=== PATIENT | female | born 1970 | race Caucasian/White ===

== ENCOUNTER → 2016-10-31 | Outpatient (REF) | payer OTHER ==
[~2016-10-31] MED LIST: ALLE180T33 PO; DOCU10CA PO; DRIS50002 PO; EPIP0.3I2 IM; FERR325T3 PO; MAXA5TAB11 PO; MOTR200T44 PO; ULTR50TA PO; VITA50TA43 PO; VITAMIN B 12 PO; XOPEAER INH; ZOFR20TA PO
[2016-10-31 19:49] LABS: MEAN CORPUSCULAR HEMOGLOBIN 29.3 pg (27.0-33.0); MEAN CORPUSCULAR HGB CONC 33.3 g/dl (32.0-36.5); RED CELL DISTRIBUTION WIDTH 13.3 % (11.5-14.5); WHITE BLOOD COUNT 5.7 K/mm3 (4.0-10.0)
[2016-10-31 20:02] LABS: FOLATE 17.2 NG/ML; VITAMIN B12 LEVEL 512 PG/ML
[2016-10-31 20:03] LABS: ALBUMIN/GLOBULIN RATIO 1.21 (1.00-1.93); ALKALINE PHOSPHATASE 85 U/L (45-117); ALT/SGPT 43 U/L (12-78); ANION GAP 8 MEQ/L (8-16); AST/SGOT 21 U/L (15-37); BILIRUBIN,TOTAL 0.3 MG/DL (0.2-1.0); BLOOD UREA NITROGEN 13 MG/DL (7-18); CALCIUM LEVEL 8.6 MG/DL (8.5-10.1); CARBON DIOXIDE LEVEL 29 MEQ/L (21-32); CHLORIDE LEVEL 100 MEQ/L (98-107); CREATININE FOR GFR 0.79 MG/DL (0.55-1.02); FREE T4 1.03 NG/DL (0.76-1.46); GLOMERULAR FILTRATION RATE > 60.0 (>58); GLUCOSE, FASTING 88 MG/DL (70-105); MAGNESIUM LEVEL 2.1 MG/DL (1.8-2.4); POTASSIUM SERUM 3.9 MEQ/L (3.5-5.1); SODIUM LEVEL 137 MEQ/L (136-145); TOTAL PROTEIN 7.3 GM/DL (6.4-8.2)
== END ==
LOC: M SFHCADAM 15:15
PROVIDERS: ATTEND Physician Assistant
DX: D50.9 Iron deficiency anemia, unspecified (principal); R60.9 Edema, unspecified; G43.009 Migraine without aura, not intractable, without status migrainosus; E55.9 Vitamin D deficiency, unspecified

== ENCOUNTER → 2017-04-22 | Outpatient (REF) | payer OTHER ==
[~2017-04-22] MED LIST changes: +LEVAINH INH; -ULTR50TA PO; +ULTR50TA8 PO; -XOPEAER INH
== END ==
LOC: M LAB REF 13:22
PROVIDERS: ATTEND Physician Assistant Medical
DX: J02.9 Acute pharyngitis, unspecified (principal)

== ENCOUNTER → 2017-06-18 | Outpatient (CLI) | payer OTHER | LOC: M ADAMS 14:39 | DX: M79.671 Pain in right foot (principal) ==

== ENCOUNTER → 2017-12-04 | Outpatient (CLI) | payer OTHER ==
[~2017-12-04] MED LIST changes: -ALLE180T33 PO; -DOCU10CA PO; -DRIS50002 PO; -EPIP0.3I2 IM; -FERR325T3 PO; -LEVAINH INH; -MAXA5TAB11 PO; -MOTR200T44 PO; +PROHANCE 279.3MG/ML 15ML VIAL (A9576) As Ordered; +PROHANCE 279.3MG/ML 5ML VIAL (A9576) As Ordered; -ULTR50TA8 PO; -VITA50TA43 PO; -VITAMIN B 12 PO; -ZOFR20TA PO
== END ==
LOC: M RAD 08:40
DX: N63.11 Unspecified lump in the right breast, upper outer quadrant (principal); N60.11 Diffuse cystic mastopathy of right breast
CPT/HCPCS: A9576

== ENCOUNTER → 2018-09-01 | Outpatient (REF) | payer OTHER ==
[~2018-09-01] MED LIST changes: +ALLE180T33 PO; +DOCU10CA PO; +DRIS50003 PO; +EPIP0.3I2 IM; +FERR325T3 PO; +LEVAINH INH; +MAXA5TAB11 PO; +MOTR200T44 PO; -PROHANCE 279.3MG/ML 15ML VIAL (A9576) As Ordered; -PROHANCE 279.3MG/ML 5ML VIAL (A9576) As Ordered; +ULTR50TA8 PO; +VITA50TA43 PO; +VITAMIN B 12 PO; +ZOFR4TAB16 PO
[2018-09-01 19:59] LABS: ALBUMIN 3.6 GM/DL (3.2-5.2); ALT/SGPT 33 U/L (12-78); BILIRUBIN,TOTAL 0.4 MG/DL (0.2-1.0); BLOOD UREA NITROGEN 13 MG/DL (7-18); CALCIUM LEVEL 8.8 MG/DL (8.5-10.1); CARBON DIOXIDE LEVEL 26 MEQ/L (21-32); CHLORIDE LEVEL 105 MEQ/L (98-107); CREATININE FOR GFR 0.66 MG/DL (0.55-1.30); GLOMERULAR FILTRATION RATE > 60.0 (>58); GLUCOSE, FASTING 85 MG/DL (70-100); POTASSIUM SERUM 4.1 MEQ/L (3.5-5.1); SODIUM LEVEL 138 MEQ/L (136-145); TOTAL PROTEIN 6.7 GM/DL (6.4-8.2)
[2018-09-01 20:37] LABS: BASO % 0.4 % (0.0-1.0); EOS # 0.1 10^3/uL (0.0-0.50); HEMATOCRIT 43.2 % (36.0-47.0); LYMPH # 2.5 10^3/uL (1.5-4.5); LYMPH % 34.5 % (24.0-44.0); MEAN CORPUSCULAR HEMOGLOBIN 28.5 pg (27.0-33.0); MEAN CORPUSCULAR HGB CONC 32.4 g/dl (32.0-36.5); MONO # 0.7 10^3/uL (0.0-0.8); MONO % 9.3 % (0.0-5.0); NEUTROPHILS # 3.9 10^3/uL (1.8-7.7); NEUTROPHILS % 54.5 % (36.0-66.0); PLATELET COUNT, AUTOMATED 228 10^3/uL (150-450); RED BLOOD COUNT 4.91 10^6/uL (4.00-5.40); WHITE BLOOD COUNT 7.2 10^3/uL (4.0-10.0)
== END ==
LOC: M SFHCADAM 11:31
PROVIDERS: ATTEND Physician Assistant
DX: L40.9 Psoriasis, unspecified (principal); R60.9 Edema, unspecified

== ENCOUNTER → 2018-09-02 | Outpatient (REF) | payer OTHER ==
[2018-09-02 19:13] LABS: COLLAGEN EPINEPHRINE 125 SECONDS (74-162)
== END ==
LOC: M LABDRWAD 18:24
PROVIDERS: ATTEND Ophthalmology
DX: H11.32 Conjunctival hemorrhage, left eye (principal)

== ENCOUNTER → 2019-02-22 | Outpatient (CLI) | payer OTHER ==
--- NOTE | 2019-02-22 19:20 | REP ---
SI joint series: Four views. History: Evaluate for arthritis. Findings: The sacroiliac joints show no evidence of ankylosis or erosive change. Impression: Negative radiographs of the SI joints. Electronically Signed by Ahsan Handy MD 02/22/2019 07:37 P
--- NOTE | 2019-02-22 19:20 | REP ---
Bilateral wrist series: Four views. History: Evaluate for arthritis. Findings: AP and lateral views of each wrist demonstrate overall normal mineralization. Joint spaces are preserved. No erosive changes seen. Impression: Negative two-view bilateral wrist series. Electronically Signed by Ahsan Handy MD 02/22/2019 07:37 P
--- NOTE | 2019-02-22 19:26 | REP ---
Bilateral hand series: Four views. History: Evaluate for arthritis. Findings: AP and lateral views of each hand are presented. These demonstrate overall normal mineralization. Bones, joints and soft tissues are unremarkable. There is minimal spurring at the dorsal aspect of the DIP joints of the index and long finger of the right hand. No erosive changes seen. Impression: Minimal DIP joint spurring index and long finger right hand. Electronically Signed by Ahsan Handy MD 02/22/2019 07:38 P
[2019-02-22 19:29] LABS: C REACTIVE PROTEIN QUANTITATIV 1.46 MG/DL (0.00-0.30); RHEUMATOID FACTOR QUANT < 10.0 IU/ML (<15.0)
== END ==
LOC: M ADAMS 16:46
PROVIDERS: ATTEND Internal Medicine Rheumatology
DX: M19.90 Unspecified osteoarthritis, unspecified site (principal); M77.9 Enthesopathy, unspecified

== ENCOUNTER → 2019-02-26 | Outpatient (REF) | payer OTHER | LOC: M SFHCADAM 16:05 | PROVIDERS: ATTEND Physician Assistant | DX: K90.41 Non-celiac gluten sensitivity (principal) ==

== ENCOUNTER → 2020-05-22 | Outpatient (CLI) | payer OTHER ==
--- NOTE | 2020-05-30 12:05 | REP ---
INDICATION: R92.8 RT BREAST ABNORMALITY ON MAMMOGRAM. Family history breast cancer in mother at age 67. COMPARISON: Mammogram 08/04/2018 and 09/26/2016. Ultrasound right breast 02/18/2019. MRI breasts 02/18/2019. Current report is delayed awaiting these prior comparison studies. TECHNIQUE: MLO and CC views of bilateral breasts performed with tomosynthesis. FINDINGS: Moderate heterogeneous fibroglandular tissue is again identified bilaterally. A biopsy clip is seen in the upper outer quadrant of the right breast. At that location there is a smoothly marginated nodule which has remained stable. The prior biopsy was benign. A few of the nodules seen on the prior mammogram have decreased in size consistent with resolving cysts. There are few other small nodular opacities in the right breast which are stable. There is a subcentimeter nodular density in the lateral left breast which is stable. No new mass or architectural distortion is seen. There are no suspicious clusters of microcalcifications. The Volpara volumetric breast density pattern is A. IMPRESSION: BIRADS/ACR category 2, benign. A few nodules previously noted in the right breast have decreased in size consistent with cysts. Other small nodular densities bilaterally are stable. No new mass or clustered microcalcifications. This patient's Tyrer-Cuzick lifetime breast cancer risk assessment score is 25.5%. This mammogram was interpreted with the aid of an FDA-approved computer-aided detection system. The patient states she had a clinical breast exam in over 1 year ago. The patient letter being requested is M1. RECOMMENDATION: Repeat screening mammography recommended 1 year (for women over 40). Given the patient's lifetime risk of breast cancer of 25.5%, supplemental screening MRI of the breasts is recommended. <Electronically signed by Adolfo Nguyễn > 05/30/20 [id number]
== END ==
LOC: M WHC 13:50
PROVIDERS: ATTEND Physician Assistant
DX: R92.8 Other abnormal and inconclusive findings on diagnostic imaging of breast (principal); Z80.3 Family history of malignant neoplasm of breast; Z97.8 Presence of other specified devices; N63.11 Unspecified lump in the right breast, upper outer quadrant
CPT/HCPCS: 77066; G0279

== ENCOUNTER → 2020-06-01 | Outpatient (CLI) | payer OTHER | LOC: M PLALAB 10:23 | PROVIDERS: ATTEND Surgery | DX: Z15.01 Genetic susceptibility to malignant neoplasm of breast (principal); Z80.3 Family history of malignant neoplasm of breast ==

== ENCOUNTER 2020-06-08 10:25 | Emergency (ER) | payer OTHER ==
[~2020-06-08] VITALS: Ht 172.7 cm; Wt 120.9 kg
--- OUTSIDE RECORDS SUMMARY | 2020-06-08 10:45 | CCD ---
Author Author [facility] Organization 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 20 Active 549227251 Problem Vitamin D deficiency E55.9 Active 71177175 Problem Abnormality of right breast on screening mammogram R92.8 Active 243348308 Problem Gastroesophageal reflux disease without esophagitis K21.9 Active 750262894 Problem Migraine without aura and without status migrain osus, not intractable G43.009 Active 343627369 Problem Abnormal mammogram of both breasts R92.8 Activ e 386113296 Problem Arthritis M19.90 Active 4050807 Problem Recurrent sinusitis J32.9 Active 763146571 Problem Melanocytic nevi of left lower limb, including hip D22.72 Active 574463923 Problem Gluten intolerance K90.41 Active 233638889 Problem Psoriasis L40.9 Active 7888966 Problem Migraines G43.909 Active 23260365 Problem Other chronic pain G89.29 Active 50440859 Problem Iron deficiency anemia, unspecified D50.9 Acti ve 32029859 Problem Chronic lumbosacral pain M54.5 Active 6170381 02 Problem Mitral valve prolapse I34.1 Active 900599311 Problem Melanocytic nevi of right lower limb, including hip D22.71 Active 116753305 Problem Melanocytic nevi of left upper limb, including shoulder D22.62 Active 147783680 Problem Melanocytic nevi of right upper limb, including shoulder D22.61 Active 593163856 Problem Melanocytic nevi of trunk D22.5 Active 619258 002 ALLERGIES Allergen (clinical drug ingredient) Drug/Non Drug Allergy do cumented on EMR Reaction Allergy Type Onset Date Status Sulfa (for allergy use only) Hives Drug Allergy Active Penicillin (For Allergies Use Only) Nausea/Vomiting Drug A llergy Active bees Anaphylaxis Non Drug Allergy Active chlorthalidone Chlorthalidone([facility] Code:[address]-80) mood swings Drug Allergy Active Codeine Phosphate([facility] Code:[address]-32) Anaphylaxis Drug Allergy Active meloxicam Meloxicam([facility] Code:[address]-23) edema Drug Allergy Active topiramate Topamax([facility] Code:[address]-89) groggy Drug Allergy Active ENCOUNTERS from 1971 to 2020-04-03 Encounter Location Date Provider Diagnosis [facility] [address] [place] [address] Mar, Reg mary Delong IMMUNIZATIONS Vaccine Route Administration Date Status Influenza (18 yrs & older) Flublok IM Intramuscular Feb 26, 2019 Administered TDAP 0.5mL (Boostrix) IM Intramuscular Feb 26, 2019 Administe red SOCIAL HISTORY Tobacco Use: Social History Observation Description Date Details (start date - stop date) Sex Assigned At : Social History Observation Description Sex Assigned At Unknown Education: Question Answer Notes Level of Education: College Audit Question Answer Notes Total Score: 1 Interpretation: Alcohol Education Sexual Hx: Question Answer Notes Had sex in the last 12 months (vaginal, oral, or anal)? Yes LMP: hyster Have you ever had an STD? No with Men only Use protection? No Drug and Alcohol Question Answer Notes Total Score: 0 Interpretation: No problems reported Alcohol Screening: Question Answer Notes Did you have a drink containing alcohol in the past year? Ye s Points 1 Interpretation Negative How often did you have six or more drinks on one occas ion in the past year? Never (0 points) How many drinks did you have on a typica l day when you were drinking in the past year? 1 or 2 (0 points) How often did you have a drink containing alcohol in t he past year? Monthly or less (1 point) BMI Care Goal Follow-Up Question Answer Notes Above Normal BMI Follow-Up Prescribed activity/exercise educ ation Tobacco Use: Question Answer Notes Are you a: never smoker REASON FOR REFERRAL No Information VITAL SIGNS No information MEDICATIONS Medication SIG (Take, Route, Frequency, Duration) Start Date En d Date Status Vitamin A 8000 UNIT 1 capsule Orally Once a day for 30 day(s) Not-Taking Vitamin B-12 1000 MCG 2 tablet Orally Once a day Active Dovonex 0.005 % 1 application to affected ar ea Externally to both elbow rashes Twice a day prior to application of ointment May, Active Vitamin D-3 125 MCG (5000 UT) as directed Orally Active Magnesium 250 MG 1 tab Orally Daily Oct, Not-T aking Betamethasone Dipropionate Aug 0.05 % 1 application to affected area Externally BID to areas on body with rash after cream Jan, Active EpiPen 2-Mundo 0.3 MG/0.3ML as directed Injection as directed for 2 days September, Active Lasix 20 MG 1 tablet Orally as needed Jan, No t-Taking Fish Oil + D3 5998-2256 MG-UNIT 1 capsule Orally Once a day for 30 day(s) Not-Taking Fluocinonide 0.05 % 1 application to affected ar ea Externally Twice daily to scalp areas with rash for 30 Active Xopenex HFA 45 MCG/ACT 2 puffs as needed Inhalation every 6 hrs as needed for shortness of breath for 30 days Not-Taki ng PROCEDURES No Information RESULTS No Results REASON FOR VISIT [facility] referral MEDICAL (GENERAL) HISTORY Type Description Date Medical History Asthma Medical History Allergic Rhinitis Medical History PCOS Medical History hx Endometriosis (none seen 12/30 hyster) & infertility Medical History hx Uterine fibroids/menorrhagia/irreg cy cles/dysmenorrhea Medical History Migraines with vision loss Medical History fam hx breast cancer (mother, MGF) Medical History fam hx colon cancer (PGM, MGM) Medical History s/p partial hysterectomy (12/30), ovaries intact Medical History fibrocystic breast disease Medical History chronic constipation Medical History H/O B12 deficiency in past. Medical History Peripheral Edema Medical History Echo - 12/2015 - Normal LV si ze and thickness. Ef 60 - 65%, mild MR - no obvious significant pathology but Technically difficult Study Medical History mitral valve prolapse - diag nosed in [place] by echo (records not available) Surgical History partial hysterectomy, still has ovaries 01/10/14 Surgical History myomectomy 07/22/03 Surgical History C section 02/24/03 Surgical History tonsillectomy child Surgical History knee surgery, left Surgical History exploratory laps Surgical History EMB-benign 12/23/13 Surgical History Colonoscopy - Hemorrhoids Dr. Hirsch 2014 Hospitalization History surgery Goals Section No Information Health Concerns No Information MEDICAL EQUIPMENT No Information MENTAL STATUS No Information FUNCTIONAL STATUS No Information ASSESSMENTS No Information PLAN OF TREATMENT Medication Medication Name Sig Start Date Stop Date Fluocinonide 0.05 % 1 application to affected ar ea Externally Twice daily to scalp areas with rash for 30 Insurance Providers Payer Name Payer Address Payer Phone Insured Name Patient Relati onship to Insured Coverage Start Date Coverage End Date [facility] [address] [address] [facility] [phone] YARELI NEIL
--- OUTSIDE RECORDS SUMMARY | 2020-06-08 10:45 | CCD ---
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 20 Active 135379188 Problem Vitamin D deficiency E55.9 Active 24125155 Problem Abnormality of right breast on screening mammogram R92.8 Active 605718838 Problem Gastroesophageal reflux disease without esophagitis K21.9 Active 211231788 Problem Migraine without aura and without status migrain osus, not intractable G43.009 Active 853159391 Problem Abnormal mammogram of both breasts R92.8 Activ e 244076303 Problem Arthritis M19.90 Active 7587509 Problem Recurrent sinusitis J32.9 Active 815479996 Problem Melanocytic nevi of left lower limb, including hip D22.72 Active 692435500 Problem Gluten intolerance K90.41 Active 194506471 Problem Psoriasis L40.9 Active 6802449 Problem Migraines G43.909 Active 51142716 Problem Other chronic pain G89.29 Active 35586410 Problem Iron deficiency anemia, unspecified D50.9 Acti ve 23788172 Problem Chronic lumbosacral pain M54.5 Active 6865745 02 Problem Mitral valve prolapse I34.1 Active 074963828 Problem Melanocytic nevi of right lower limb, including hip D22.71 Active 979646832 Problem Melanocytic nevi of left upper limb, including shoulder D22.62 Active 738540384 Problem Melanocytic nevi of right upper limb, including shoulder D22.61 Active 973581691 Problem Melanocytic nevi of trunk D22.5 Active 274815 002 ALLERGIES Allergen (clinical drug ingredient) Drug/Non Drug Allergy do cumented on EMR Reaction Allergy Type Onset Date Status Sulfa (for allergy use only) Hives Drug Allergy Active Penicillin (For Allergies Use Only) Nausea/Vomiting Drug A llergy Active bees Anaphylaxis Non Drug Allergy Active chlorthalidone Chlorthalidone([facility] Code:[address]-21) mood swings Drug Allergy Active Codeine Phosphate([facility] Code:[address]-32) Anaphylaxis Drug Allergy Active meloxicam Meloxicam([facility] Code:[address]-13) edema Drug Allergy Active topiramate Topamax([facility] Code:[address]-63) groggy Drug Allergy Active ENCOUNTERS from 1971 to 2020-04-11 Encounter Location Date Provider Diagnosis [facility] [address] [place] [address] Mar, Reg mary Delong IMMUNIZATIONS Vaccine Route [...] MEDICATIONS Medication SIG (Take, Route, Frequency, Duration) Notes Start Da te End Date Status Vitamin A 8000 UNIT 1 capsule Orally Once a day for 30 day(s) Not-Taking EpiPen 2-Mundo 0.3 MG/0.3ML as directed Injection as directed for 2 days September, Active Vitamin D-3 125 MCG (5000 UT) as directed Orally Active Vitamin B-12 1000 MCG 2 tablet Orally Once a day Active Otezla 30 MG TAKE ONE TABLET BY MOUTH TWICE A DAY for 30 Active Betamethasone Dipropionate Aug 0.05 % 1 application to affected area Externally BID to areas on body with rash after cream Jan, Active Xopenex HFA 45 MCG/ACT 2 puffs as needed Inhalation every 6 hrs as needed for shortness of breath for 30 days Not-Taking Lasix 20 MG 1 tablet Orally as needed Jan, Not-Taking Dovonex 0.005 % 1 application to affected ar ea Externally to both elbow rashes Twice a day prior to application of ointment May, Active Fish Oil + D3 4466-6009 MG-UNIT 1 capsule Orally Once a day for 30 da y(s) Not-Taking Fluocinonide 0.05 % 1 application to affected ar ea Externally Twice daily to scalp areas with rash for 30 Act mackenzie Magnesium 250 MG 1 tab Orally Daily Oct, Not-Taking PROCEDURES No Information RESULTS No Results REASON FOR VISIT life ins paperwork MEDICAL (GENERAL) HISTORY Type Description Date Medical [...] mitral valve prolapse - diag nosed in [place] by echo (records not available) Surgical History [...] Medication Name Sig Start Date Stop Date Otezla 30 MG TAKE ONE TABLET BY MOUTH TWICE A DAY for 30 Fluocinonide 0.05 % 1 application to affected ar ea Externally Twice daily to scalp areas with rash for 30 Insurance Providers Payer Name Payer Address Payer Phone Insured Name Patient Relati onship to Insured Coverage Start Date Coverage End Date [facility] [address] [address] [facility] [phone] YARELI NEIL
--- OUTSIDE RECORDS SUMMARY | 2020-06-08 10:45 | CCD ---
Author Author [facility] Address Unknown Phone Unavailable Care Team Providers Care Bar Manager Name Role Phone Felicitas Armendariz MD Unavailable Felicitas Multani MD Unavailable Unavailable Felicitas Armendariz MD Unavailable Unavailable Felicitas Armendariz MD Unavailable Unavailable Felicitas Armendariz MD Unavailable Unavailable Felicitas Armendariz MD Unavailable Unavailable Felicitas Armendariz MD Unavailable Unavailable Felicitas Armendariz MD Unavailable Unavailable Felicitas Armendariz MD Unavailable Unavailable Felicitas Armendariz MD Unavailable Felicitas Multani MD Unavailable Unavailable Felicitas Armendariz MD Unavailable Unavailable Felicitas Armendariz MD Unavailable Unavailable Vaneenenaam, Felicitas Wood MD Unavailable Unavailable Vaneenenaam, Felicitas Wood MD Unavailable Unavailable Vaneenenaam, Felicitas Wood MD Unavailable Unavailable Vaneenenaam, Felicitas Wood MD Unavailable Unavailable Vaneenenaam, Felicitas Wood MD Unavailable Unavailable Vaneenenaam, Felicitas Wood MD Unavailable Unavailable Vaneenenaam, Felicitas Wood MD Unavailable Unavailable Vaneenenaam, Felicitas Wood MD Unavailable Unavailable Vaneenenaam, Felicitas Wood MD Unavailable Unavailable Vaneenenaam, Felicitas Wood MD Unavailable Unavailable Vaneenenaam, Felicitas Wood MD Unavailable Unavailable Vaneenenaam, Felicitas Wood MD Unavailable Unavailable Vaneenenaam, Felicitas Wood MD Unavailable Unavailable Vaneenenaam, Felicitas Wood MD Unavailable Unavailable Vaneenenaam, Felicitas Wood MD Unavailable Unavailable Vaneenenaam, Felicitas Wood MD Unavailable Unavailable Vaneenenaam, Felicitas Wood MD Unavailable Unavailable Vaneenenaam, Felicitas Wood MD Unavailable Unavailable Vaneenenaam, Felicitas Wood MD Unavailable Unavailable Vaneenenaam, Felicitas Wood MD Unavailable Unavailable Vaneenenaam, Felicitas Wood MD Unavailable Unavailable Vaneenenaam, Felicitas Wood MD Unavailable Unavailable Vaneenenaam, Felicitas Wood MD Unavailable Unavailable Vaneenenaam, Felicitas Wood MD Unavailable Unavailable Vaneenenaam, Felicitas Wood MD Unavailable Unavailable Vaneenenaam, Felicitas Wood MD Unavailable Unavailable Vaneenenaam, Felicitas Wood MD Unavailable Unavailable Vaneenenaam, Felicitas Wood MD Unavailable Unavailable Vaneenenaam, Felicitas Wood MD Unavailable Unavailable Vaneenenaam, Felicitas Wood MD Unavailable Unavailable Vaneenenaam, Felicitas Wood MD Unavailable Unavailable CICO, A NEVAEH VISUAL TRAINING AIDE Unavailable Unavailable CICO, A NEVAEH VISUAL TRAINING AIDE Unavailable Unavailable CICO, A NEVAEH VISUAL TRAINING AIDE Unavailable Unavailable CICO, A NEVAEH VISUAL TRAINING AIDE Unavailable Unavailable CICO, A NEVAEH VISUAL TRAINING AIDE Unavailable Unavailable CICO, A NEVAEH VISUAL TRAINING AIDE Unavailable Unavailable CICO, A NEVAEH VISUAL TRAINING AIDE Unavailable Unavailable CICO, A NEVAEH VISUAL TRAINING AIDE Unavailable Unavailable CICO, A NEVAEH VISUAL TRAINING AIDE Unavailable Unavailable CICO, A NEVAEH VISUAL TRAINING AIDE Unavailable Unavailable CICO, A NEVAEH VISUAL TRAINING AIDE Unavailable Unavailable CICO, A NEVAEH VISUAL TRAINING AIDE Unavailable Unavailable CICO, A NEVAEH VISUAL TRAINING AIDE Unavailable Unavailable CICO, A NEVAEH VISUAL TRAINING AIDE Unavailable Unavailable CICO, A NEVAEH VISUAL TRAINING AIDE Unavailable Unavailable CICO, A NEVAEH VISUAL TRAINING AIDE Unavailable Unavailable CICO, A NEVAEH VISUAL TRAINING AIDE Unavailable Unavailable CICO, A NEVAEH VISUAL TRAINING AIDE Unavailable Unavailable CICO, A NEVAEH VISUAL TRAINING AIDE Unavailable Unavailable CICO, A NEVAEH VISUAL TRAINING AIDE Unavailable Unavailable CICO, A NEVAEH VISUAL TRAINING AIDE Unavailable Unavailable CICO, A NEVAEH VISUAL TRAINING AIDE Unavailable Unavailable CICO, A NEVAEH VISUAL TRAINING AIDE Unavailable Unavailable CICO, A NEVAEH VISUAL TRAINING AIDE Unavailable Unavailable CICO, A NEVAEH VISUAL TRAINING AIDE Unavailable Unavailable CICO, A NEVAEH VISUAL TRAINING AIDE Unavailable Unavailable CICO, A NEVAEH VISUAL TRAINING AIDE Unavailable Unavailable CICO, A NEVAEH VISUAL TRAINING AIDE Unavailable Unavailable CICO, A NEVAEH VISUAL TRAINING AIDE Unavailable Unavailable CICO, A NEVAEH VISUAL TRAINING AIDE Unavailable Unavailable CICO, A NEVAEH VISUAL TRAINING AIDE Unavailable Unavailable CICO, A NEVAEH VISUAL TRAINING AIDE Unavailable Unavailable CICO, A NEVAEH VISUAL TRAINING AIDE Unavailable Unavailable CICO, A NEVAEH VISUAL TRAINING AIDE Unavailable Unavailable CICO, A NEVAEH VISUAL TRAINING AIDE Unavailable Unavailable CICO, A NEVAEH VISUAL TRAINING AIDE Unavailable Unavailable CICO, A NEVAEH VISUAL TRAINING AIDE Unavailable Unavailable CICO, A NEVAEH VISUAL TRAINING AIDE Unavailable Unavailable CICO, A NEVAEH VISUAL TRAINING AIDE Unavailable Unavailable CICO, A NEVAEH VISUAL TRAINING AIDE Unavailable Unavailable CICO, A NEVAEH VISUAL TRAINING AIDE Unavailable Unavailable CICO, A NEVAEH VISUAL TRAINING AIDE Unavailable Unavailable CICO, A NEVAEH VISUAL TRAINING AIDE Unavailable Unavailable CICO, A NEVAEH VISUAL TRAINING AIDE Unavailable Unavailable CICO, A NEVAEH VISUAL TRAINING AIDE Unavailable Unavailable CICO, A NEVAEH VISUAL TRAINING AIDE Unavailable Unavailable CICO, A NEVAEH VISUAL TRAINING AIDE Unavailable Unavailable CICO, A NEVAEH VISUAL TRAINING AIDE Unavailable Unavailable CICO, A NEVAEH VISUAL TRAINING AIDE Unavailable Unavailable CICO, A NEVAEH VISUAL TRAINING AIDE Unavailable Unavailable CICO, A NEVAEH VISUAL TRAINING AIDE Unavailable Unavailable Mcallister, Aruna Myra PA Unavailable Unavailable Mcallister, Aruna Myra PA Unavailable Unavailable Mcallister, Aruna Myra PA Unavailable Unavailable Mcallister, Aruna Myra PA Unavailable Unavailable Mcallister, Aruna Myra PA Unavailable Unavailable Mcallister, Aruna Myra PA Unavailable Unavailable Mcallister, Aruna Myra PA Unavailable Unavailable Mcallister, Aruna Myra PA Unavailable Unavailable Mcallsiter, Aruna Myra PA Unavailable Unavailable Mcallister, Aruna Myra PA Unavailable Unavailable Re-disclosure Warning The records that you are about to access may contain information from federally-assisted alcohol or drug abuse programs. If such information is present, then the following federally mandated warning applies: This information has been disclosed to you from records protected by federal confidentiality rules (42 CFR part 2). The federal rules prohibit you from making any further disclosure of this information unless further disclosure is expressly permitted by the written consent of the person to whom it pertains or as otherwise permitted by 42 CFR part 2. A general authorization for the release of medical or other information is NOT sufficient for this purpose. The Federal rules restrict any use of the information to criminally investigate or prosecute any alcohol or drug abuse patient.The records that you are about to access may contain highly sensitive health information, the redisclosure of which is protected by Article 27-F of the [facility] Public Health law. If you continue you may have access to information: Regarding HIV / AIDS; Provided by facilities licensed or operated by the [facility] Office of Mental Health; or Provided by the [facility] Office for People With Developmental Disabilities. If such information is present, then the following [facility] mandated warning applies: This information has been disclosed to you from confidential records which are protected by state law. State law prohibits you from making any further disclosure of this information without the specific written consent of the person to whom it pertains, or as otherwise permitted by law. Any unauthorized further disclosure in violation of state law may result in a fine or mcfp sentence or both. A general authorization for the release of medical or other information is NOT sufficient authorization for further disc losure. Allergies and Adverse Reactions Type Description Substance Reaction Status Data Source(s ) bees bees bees Anaphylaxis Active eCW1 ([facility]) Drug allergy Meloxicam meloxicam edema Active eCW1 ([facility]) Drug allergy Codeine Phosphate Drug allergy Anaphylaxis Active e CW1 ([facility]) bees bees bees Anaphylaxis Active eCW1 ([facility]) bees bees bees Anaphylaxis Active eCW1 ([facility]) Drug Allergy NKDA NKDA MEDENT ([facility] ) Family History Family Member Name Family Member Gender Family Member Status Date o f Status Description Data Source(s) Unknown Unknown Problem MEDENT ([facility] Unknown Male Problem MEDENT ([facility] 72 Encounters Encounter Providers Location Date Indications Data Source(s ) Unknown [address] [facility] [address] 05/22/2020 12:00:00 AM EST eCW1 ([facility]) Unknown [address] [facility] [place] [address] 05/08/2020 12:00:00 AM EST eCW1 ([facility]) Unknown [address] [facility] [address] 04/07/2020 12:00:00 AM EST eCW1 ([facility]) Unknown [address] [place] [id number] 03/30/2020 12:00:00 AM EST eCW1 ([facility]) [facility] [address] [place] [address] 02/03/2020 12:00:00 AM EDT eCW1 ([facility]) Outpatient Attender: Myra Houser janna 11/28/2019 03:00:00 PM EDT MEDENT ([facility]) Outpatient Referrer: NEVAEH QUIROS NP 08/27/2019 12:00:09 PM E DT [facility] Outpatient Referrer: NEVAEH QUIROS NP 08/09/2019 01:03:57 PM E DT [facility] OFFICE OUTPATIENT NEW 30 MINUTES Attender: Felicitas Kan am, MD Physical Therapy 06/23/2019 12:45:00 PM EST MEDENT ([facility]) [address] [address] 06/15/2019 12:00:00 AM EST eCW1 ([facility]) [facility] [address] [address] 06/03/2019 12:00:00 AM EST eCW1 ([facility]) [address] [address] 04/13/2019 12:00:00 AM EST eCW1 ([facility]) Outpatient Referrer: NEVAEH QUIROS NP 02/18/2019 03:20:37 PM E DT [facility] Immunizations Vaccine Date Status Description Data Source(s) INFLUENZA VIRUS VACCINE QUADRIVALENT 2020- (6 MOS AN D UP) 02/07/2020 12:00:00 AM EDT completed [facility] Medications Medication Brand Name Start Date Product Form Dose Route Admi nistrative Instructions Pharmacy Instructions Status Indications Reaction Description Data Source(s) 0.005 % 02/04/2020 12:00:00 AM EDT cream 60 APPLY TO BOTH ELBOW RASHES TWO TIMES A DAY BEFORE OINTMENT APPLICATION APPLY TO BOTH ELBOW RASHES TWO TIMES A DAY BEFORE OINTMENT APPLICATION SOLD: 02/07/2020 [facility] 0.05 % 02/04/2020 12:00:00 AM EDT solution 60 APPLY TO AFFECTED SCALP AREAS WITH RASH TWO TIMES A DAY DIRECTED APPLY TO AFFECTED SCALP AREAS WITH RASH TWO TIMES A DAY DIRECTED SOLD: 02/07/2020 [facility] 0.05 % 02/04/2020 12:00:00 AM EDT ointment 45 APPLY TO AFFECTED AREA ON BODY WITH RASH AFTER CREAM TWO TIMES A DAY APPLY TO AFFECTED AREA ON BODY WITH RASH AFTER CREAM TWO TIMES A DAY SOLD: 02/07/2020 [facility] 0.05 % 10/23/2019 12:00:00 AM EDT solution 60 APPLY TO AFFECTED AREA(S) OF SCALP WITH RASH TWO TIMES A DAY APPLY TO AFFECTED AREA(S) OF SCALP WITH RASH TWO TIMES A DAY SOLD: 11/01/2019 [facility] 0.05 % 02/02/2019 12:00:00 AM EDT ointment 45 APPLY TO AFFECTED AREA(S) ON BODY WITH RASH TWO TIMES A DAY, APPLY AFTER CREAM APPLY TO AFFECTED AREA(S) ON BODY WITH RASH TWO TIMES A DAY, APPLY AFTER CREAM SOLD: 07/26/2019 [facility] 0.005 % 02/02/2019 12:00:00 AM EDT cream 60 APPLY TO BOTH ELBOW RASHES TWO TIMES A DAY BEFORE OINTMENT APPLICATION APPLY TO BOTH ELBOW RASHES TWO TIMES A DAY BEFORE OINTMENT APPLICATION SOLD: 07/26/2019 [facility] 0.05 % 02/02/2019 12:00:00 AM EDT solution 60 APPLY TO AFFECTED AREA(S) OF SCALP RASH TWO TIMES A DAY APPLY TO AFFECTED AREA(S) OF SCALP RASH TWO TIMES A DAY SOLD: 04/12/2019 [facility] 0.05 % 02/02/2019 12:00:00 AM EDT solution 60 APPLY TO AFFECTED AREA(S) OF SCALP RASH TWO TIMES A DAY APPLY TO AFFECTED AREA(S) OF SCALP RASH TWO TIMES A DAY SOLD: 05/25/2019 [facility] 0.05 % 02/02/2019 12:00:00 AM EDT solution 60 APPLY TO AFFECTED AREA(S) OF SCALP RASH TWO TIMES A DAY APPLY TO AFFECTED AREA(S) OF SCALP RASH TWO TIMES A DAY SOLD: 07/26/2019 Ronda perkins Insurance Providers Payer name Policy type / Coverage type Policy ID Covered alliance party ID Covered alliance party's relationship to marquez Policy Marquez Plan Information [facility] [id number] SP [id number] [facility] [id number] SP [id number] [facility] [id number] S [id number] [facility] [id number] Christal [id number] ANSI-Commercial [id number] ANSI-Commercial [id number] ANSI-Commercial [id number] [facility] [employer] Health Maintenance Organization (HMO) [id number] Self [id number] [facility] Health Maintenance Organization (O) [id number] Self [id number] ANSI-Commercial [id number] ANSI-Commercial [id number] ANSI-Commercial [id number] ANSI-Commercial [id number] ANSI-Commercial [id number] ANSI-Commercial [id number] [facility] Health Maintenance Organization (HMO) [id number] Self [id number] [facility] [employer] Health Maintenance Organization (HMO) [id number] Self [id number] [employer] [id number] Self [id number] UMR [facility] [id number] SP [id number] [facility] [id number] Christal [id number] R [facility] [id number] SP [id number] UMR [facility] [id number] SP [id number] [employer] Commercial [id number] Self [id number] [facility] [id number] SP [id number] [employer] Commercial [id number] Self [id number] [employer] Commercial [id number] Self [id number] [employer] Commercial [id number] Self [id number] [employer] [place] PPO 302/307 [id number] [employer] [place] PPO 302/307 [id number] HU2 [id number] [employer] [place] PPO 302/307 [id number] [facility] COMMUNITY PLAN [facility] [id number] SP [id number] [facility] COMMUNITY PLAN [facility] [id number] SP [id number] [employer] [place] [id number] FA2 [id number] [employer] [place] [id number] 2 [id number] [employer] [place] [id number] FA2 [id number] [employer] [place] [id number] 2 [id number] [employer] PPO O [id number] S [id number] [employer] PPO O UNAVAILABLE S UNAVAILA BLE SELF PAY ONLY UNAVAILABLE UNAV AILABLE BCBS/[employer] Commercial Family Dependent Healthnet Federal Service Medigap Part B Family De pendent BS [place] Commercial Family Dependent [employer]CELL[employer] BCBS B [id number] O [id number] [id number] [facility](MCA[facility]) O [id number] O [id number] United [facility]/Community [facility] Health Maintenance Organization (HMO) Self [facility] [id number] SP [id number] MEDICAID P [id number] S [id number] MEDICAID P [id number] S [id number] MEDICAID P UNAVAILABLE S UNAVAILA BLE PG[employer] [place] P [id number] P [id number] Problems, Conditions, and Diagnoses Code Display Name Description Problem Type Effective Dates Data Source(s) R92.8 [id number] Other abnormal and i nconclusive findings on diagnostic imaging of breast Problem 05/22/2020 12:00:00 AM EST eCW1 ([facility]) R92.8 [id number] Abnormal finding on breast imaging Proble 05/09/2020 12:00:00 AM EST eCW1 ([facility]) G89.29 [id number] Other chronic pain Problem 06/15/2019 12:00: 00 AM EST eCW1 ([facility]) G89.29 [id number] Other chronic pain Problem 06/15/2019 12:00: 00 AM EST eCW1 ([facility]) Surgeries/Procedures Procedure Description Date Indications Data Source(s) RADEX SHOULDER COMPLETE MINIMUM 2 VIEWS 06/23/2019 12: 00:00 AM EST MEDENT ([facility]) Social History Code Duration Value Status Description Data Source(s ) Smoking 06/15/2019 12:00:00 AM EST UNK completed eCW1 ([facility]) Smoking 06/15/2019 12:00:00 AM EST UNK completed eCW1 ([facility]) Smoking 06/15/2019 12:00:00 AM EST UNK completed eCW1 ([facility]) Smoking 06/15/2019 12:00:00 AM EST UNK completed eCW1 ([facility]) Vital Signs ID Date Data Source UNK Name Value Range Interpretation Code Description Data Source(s) Diastolic blood pressure 80 mm[Hg] 80 mm[Hg] MEDENT ([facility]) Systolic blood pressure 134 mm[Hg] 134 mm[Hg] M EDENT ([facility]) Body mass index (BMI) [Ratio] 33.4 kg/m2 33.4 k g/m2 MEDENT ([facility], [facility]) Body height 68 [in_i] 68 [in_i] MEDENT ([facility]) 5'8" Body weight 220.00 [lb_av] 220.00 [lb_av] MEDEN T ([facility], [facility]) Body temperature 97.8 [degF] 97.8 [degF] MEDENT ([facility], [facility]) Oxygen saturation in Arterial blood by Pulse oximetry 98 % 98 % MEDENT ([facility]) Respiratory rate 20 /min 20 /min MEDENT ( [facility]) Heart rate 100 /min 100 /min MEDENT ([facility]) Body mass index (BMI) [Ratio] 38.0 kg/m2 38.0 k g/m2 MEDENT ([facility] ) Body weight 250.00 [lb_av] 250.00 [lb_av] MEDEN T ([facility] ) Body height 68 [in_i] 68 [in_i] MEDENT ([facility] ) 5'8" Body temperature 97.1 [degF] 97.1 [degF] MEDENT ([facility] ) Diastolic blood pressure 84 mm[Hg] 84 mm[Hg] eCW1 ([facility]) Systolic blood pressure 120 mm[Hg] 120 mm[Hg] e CW1 ([facility]) Body temperature 96.9 [degF] 96.9 [degF] eCW1 ( [facility]) Respiratory rate 18 /min 18 /min eCW1 ([facility]) Heart rate 93 /min 93 /min eCW1 ([facility]) Body mass index (BMI) [Ratio] 38.10 kg/m2 38.10 kg/m2 eCW1 ([facility]) Body height [in_us] eCW1 ([facility]) Body weight Measured 250.6 [lb_av] 250.6 [lb_av ] eCW1 ([facility]) Diastolic blood pressure 78 mm[Hg] 78 mm[Hg] eCW1 ([facility]) Systolic blood pressure 126 mm[Hg] 126 mm[Hg] e CW1 ([facility]) Body temperature 98.8 [degF] 98.8 [degF] eCW1 ( [facility]) Respiratory rate 18 /min 18 /min eCW1 ([facility]) Heart rate 88 /min 88 /min eCW1 ([facility]) Body mass index (BMI) [Ratio] 38.34 kg/m2 38.34 kg/m2 eCW1 ([facility]) Body height [in_us] eCW1 ([facility]) Body weight Measured 252.2 [lb_av] 252.2 [lb_av ] eCW1 ([facility]) Diastolic blood pressure 80 mm[Hg] 80 mm[Hg] eCW1 ([facility]) Systolic blood pressure 130 mm[Hg] 130 mm[Hg] e CW1 ([facility]) Body temperature 97.1 [degF] 97.1 [degF] eCW1 ( [facility]) Respiratory rate 18 /min 18 /min eCW1 ([facility]) Heart rate 89 /min 89 /min eCW1 ([facility]) Body mass index (BMI) [Ratio] 38.10 kg/m2 38.10 kg/m2 eCW1 ([facility]) Body height [in_us] eCW1 ([facility]) Body weight Measured 250.6 [lb_av] 250.6 [lb_av ] eCW1 ([facility])
--- OUTSIDE RECORDS SUMMARY | 2020-06-08 10:45 | CCD ---
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 20 Active 018112642 Problem Vitamin D deficiency E55.9 Active 17314254 Problem Abnormality of right breast on screening mammogram R92.8 Active 958668805 Problem Gastroesophageal reflux disease without esophagitis K21.9 Active 878545511 Problem Iron deficiency anemia, unspecified D50.9 Acti ve 21046652 Problem Migraine without aura and without status migrain osus, not intractable G43.009 Active 656414931 Problem Recurrent sinusitis J32.9 Active 781970450 Problem Melanocytic nevi of left lower limb, including hip D22.72 Active 910094712 Problem Melanocytic nevi of right lower limb, including hip D22.71 Active 986583033 Problem Other chronic pain G89.29 Active 13663731 Problem Arthritis M19.90 Active 5188613 Problem Migraines G43.909 Active 90684549 Problem Abnormal finding on breast imaging R92.8 Activ e 706295068 Problem Psoriasis L40.9 Active 9031460 Problem Chronic lumbosacral pain M54.5 Active 2306588 02 Problem Mitral valve prolapse I34.1 Active 170363949 Problem Melanocytic nevi of left upper limb, including shoulder D22.62 Active 909507289 Problem Melanocytic nevi of right upper limb, including shoulder D22.61 Active 896307458 Problem Melanocytic nevi of trunk D22.5 Active 243327 002 Problem Gluten intolerance K90.41 Active 625046262 ALLERGIES Allergen (clinical drug ingredient) Drug/Non Drug Allergy do cumented on EMR Reaction Allergy Type Onset Date Status Sulfa (for allergy use only) Hives Drug Allergy Active Penicillin (For Allergies Use Only) Nausea/Vomiting Drug A llergy Active bees Anaphylaxis Non Drug Allergy Active chlorthalidone Chlorthalidone([facility] Code:[address]-62) mood swings Drug Allergy Active Codeine Phosphate([facility] Code:[address]-91) Anaphylaxis Drug Allergy Active meloxicam Meloxicam([facility] Code:[address]-56) edema Drug Allergy Active topiramate Topamax([facility] Code:[address]-98) groggy Drug Allergy Active ENCOUNTERS from 1971 to 2020-05-09 Encounter Location Date Provider Diagnosis [facility] [address] [place] [address] Apr, Reg mary Baljeet Abnormal finding on breast imaging R92.8 IMMUNIZATIONS Vaccine Route Administration Date Status Influenza [...] ointment May, Active Fish Oil + D3 1831-0811 MG-UNIT 1 capsule Orally Once a day for 30 da y(s) Not-Taking Fluocinonide 0.05 % 1 application to affected ar ea Externally Twice daily to scalp areas with rash for 30 Act mackenzie Magnesium 250 MG 1 tab Orally Daily Oct, Not-Taking PROCEDURES No Information RESULTS No Results REASON FOR VISIT needs order MEDICAL (GENERAL) HISTORY Type Description Date Medical [...] mitral valve prolapse - diag nosed in [place] by echo (records not available) Surgical History [...] No Information FUNCTIONAL STATUS No Information ASSESSMENTS Encounter Date Diagnosis Assessment Notes Treatment Notes Treatm ent Clinical Notes Apr, Abnormal finding on breast imaging (ICD-10 - R92 .8) PLAN OF TREATMENT Medication Medication Name Sig Start Date Stop Date Otezla 30 MG TAKE ONE TABLET BY MOUTH TWICE A DAY for 30 Fluocinonide 0.05 % 1 application to affected ar ea Externally Twice daily to scalp areas with rash for 30 Treatment Notes Test Name Order Date [facility] Unilateral (Ultrasound if Indicat ed) (3D Mammo) 2020-05-09 Next Appt Details Provider Name:Shereen Villagran, 20 08-06-06 08:00:00 AM, [address] [place], [address], Insurance Providers Payer Name Payer Address Payer Phone Insured Name Patient Relati onship to Insured Coverage Start Date Coverage End Date [facility] [address] [address] [facility] [id number] YARELI NEIL
--- OUTSIDE RECORDS SUMMARY | 2020-06-08 10:45 | CCD ---
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 20 Active 747002606 Problem Iron deficiency anemia, unspecified D50.9 Acti ve 12672025 Problem Migraine without aura and without status migrain osus, not intractable G43.009 Active 325197581 Problem Recurrent sinusitis J32.9 Active 230238602 Problem Melanocytic nevi of left lower limb, including hip D22.72 Active 984940193 Problem Melanocytic nevi of right lower limb, including hip D22.71 Active 240420330 Problem Other chronic pain G89.29 Active 09598376 Problem Arthritis M19.90 Active 9850100 Problem Migraines G43.909 Active 92523265 Problem Other abnormal and inconclus mackenzie findings on diagnostic imaging of breast R92.8 Active 992580789 Problem Psoriasis L40.9 Active 6766120 Problem Chronic lumbosacral pain M54.5 Active 3582255 02 Problem Mitral valve prolapse I34.1 Active 467839382 Problem Melanocytic nevi of left upper limb, including shoulder D22.62 Active 350780514 Problem Melanocytic nevi of right upper limb, including shoulder D22.61 Active 113270623 Problem Melanocytic nevi of trunk D22.5 Active 877237 002 Problem Gluten intolerance K90.41 Active 756247044 ALLERGIES Allergen (clinical drug ingredient) Drug/Non Drug Allergy do cumented on EMR Reaction Allergy Type Onset Date Status Sulfa (for allergy use only) Hives Drug Allergy Active Penicillin (For Allergies Use Only) Nausea/Vomiting Drug A llergy Active bees Anaphylaxis Non Drug Allergy Active chlorthalidone Chlorthalidone([facility] Code:[address]-51) mood swings Drug Allergy Active Codeine Phosphate([facility] Code:[address]-70) Anaphylaxis Drug Allergy Active meloxicam Meloxicam([facility] Code:[address]-25) edema Drug Allergy Active topiramate Topamax([facility] Code:[address]-59) groggy Drug Allergy Active ENCOUNTERS from 1971 to 2020-05-23 Encounter Location Date Provider Diagnosis [facility] [address] [place] [address] May, Reg mary Delong Other abnormal and inconclusive findings on diagnostic imaging of breast R92.8 IMMUNIZATIONS Vaccine Route Administration Date Status [...] ointment May, Active Fish Oil + D3 2861-1325 MG-UNIT 1 capsule Orally Once a day for 30 da y(s) Not-Taking Fluocinonide 0.05 % 1 application to affected ar ea Externally Twice daily to scalp areas with rash for 30 Act mackenzie Magnesium 250 MG 1 tab Orally Daily Oct, Not-Taking PROCEDURES No Information RESULTS No Results REASON FOR VISIT mammo MEDICAL (GENERAL) HISTORY Type Description Date Medical [...] valve prolapse - diag nosed in [place] by echo (records not available) Surgical History [...] Notes Treatment Notes Treatm ent Clinical Notes May, Other abnormal and inconclus mackenzie findings on diagnostic imaging of breast (ICD-10 - R92.8) PLAN OF TREATMENT Medication Medication Name Sig Start Date Stop Date Otezla 30 MG TAKE ONE TABLET BY MOUTH TWICE A DAY for 30 Fluocinonide 0.05 % 1 application to affected ar ea Externally Twice daily to scalp areas with rash for 30 Treatment Notes Test Name Order Date [facility] Bilateral (Ultrasound if Indicate d) (3D Mammo) 2020-05-23 Next Appt Details Provider Name:Shereen Villagran, 20 08-06-06 08:00:00 AM, [address] [facility], [place], [address], Insurance Providers Payer Name Payer Address Payer Phone Insured Name Patient Relati onship to Insured Coverage Start Date Coverage End Date [facility] [address] [address] [facility] [phone] YARELI NEIL
--- NOTE | 2020-06-08 11:05 | REP ---
INDICATION: CHEST PAIN. COMPARISON: 08/11/2005. TECHNIQUE: SINGLE PORTABLE AP VIEW OF THE CHEST WAS PERFORMED. FINDINGS: THERE IS NO ACUTE INFILTRATE OR PULMONARY EDEMA. LUNGS ARE CLEAR. HEART IS NOT SIGNIFICANTLY ENLARGED. MEDIASTINAL SILHOUETTE IS UNREMARKABLE. THE VISUALIZED OSSEOUS STRUCTURES ARE INTACT. IMPRESSION: NO ACUTE PULMONARY DISEASE. <Electronically signed by Adolfo Nguyễn > 06/08/20 1105
[2020-06-08] MEDS ORDERED: VITAMIN D PO (11:12)
[2020-06-08] MEDS ORDERED: OTEZ1TAB3 PO (11:12)
[2020-06-08 11:43] LABS: BASO % 0.4 % (0.0-1.0); EOS # 0.1 10^3/uL (0.0-0.5); EOS % 1.6 % (0.0-3.0); HEMATOCRIT 39.6 % (36.0-47.0); HEMOGLOBIN 12.9 g/dl (12.0-15.5); LYMPH # 2.2 10^3/uL (1.5-5.0); LYMPH % 39.9 % (24.0-44.0); MEAN CORPUSCULAR HEMOGLOBIN 27.5 pg (27.0-33.0); MEAN CORPUSCULAR HGB CONC 32.6 g/dl (32.0-36.5); MEAN CORPUSCULAR VOLUME 84.4 fl (80.0-96.0); MONO # 0.6 10^3/uL (0.0-0.8); MONO % 10.5 % (0.0-5.0); NEUTROPHILS # 2.6 10^3/uL (1.5-8.5); NEUTROPHILS % 47.2 % (36.0-66.0); PLATELET COUNT, AUTOMATED 212 10^3/uL (150-450); RED BLOOD COUNT 4.69 10^6/uL (4.00-5.40); WHITE BLOOD COUNT 5.5 10^3/uL (4.0-10.0)
--- OUTSIDE RECORDS SUMMARY | 2020-06-08 11:50 | CCD ---
Author Author [facility] Address Unknown Phone Unavailable Care Team Providers Care Manager Audio Name Role Phone Felicitas Armendariz MD Unavailable Unavailable Felicitas Armendariz MD Unavailable Felicitas Multani MD Unavailable Felicitas Multani MD Unavailable Unavailable [...] Wood MD Unavailable Unavailable CICO, A NEVAEH STUDENT SUCCESS COUNSELOR Unavailable Unavailable CICO, A NEVAEH STUDENT SUCCESS COUNSELOR Unavailable Unavailable CICO, A NEVAEH STUDENT SUCCESS COUNSELOR Unavailable Unavailable CICO, A NEVAEH STUDENT SUCCESS COUNSELOR Unavailable Unavailable CICO, A NEVAEH STUDENT SUCCESS COUNSELOR Unavailable Unavailable CICO, A NEVAEH STUDENT SUCCESS COUNSELOR Unavailable Unavailable CICO, A NEVAEH STUDENT SUCCESS COUNSELOR Unavailable Unavailable CICO, A NEVAEH STUDENT SUCCESS COUNSELOR Unavailable Unavailable CICO, A NEVAEH STUDENT SUCCESS COUNSELOR Unavailable Unavailable CICO, A NEVAEH STUDENT SUCCESS COUNSELOR Unavailable Unavailable CICO, A NEVAEH STUDENT SUCCESS COUNSELOR Unavailable Unavailable CICO, A NEVAEH STUDENT SUCCESS COUNSELOR Unavailable Unavailable CICO, A NEVAEH STUDENT SUCCESS COUNSELOR Unavailable Unavailable CICO, A NEVAEH STUDENT SUCCESS COUNSELOR Unavailable Unavailable CICO, A NEVAEH STUDENT SUCCESS COUNSELOR Unavailable Unavailable CICO, A NEVAHE STUDENT SUCCESS COUNSELOR Unavailable Unavailable CICO, A NEVAEH STUDENT SUCCESS COUNSELOR Unavailable Unavailable CICO, A NEVAEH STUDENT SUCCESS COUNSELOR Unavailable Unavailable CICO, A NEVAEH STUDENT SUCCESS COUNSELOR Unavailable Unavailable CICO, A NEVAEH STUDENT SUCCESS COUNSELOR Unavailable Unavailable CICO, A NEVAEH STUDENT SUCCESS COUNSELOR Unavailable Unavailable CICO, A NEVAEH STUDENT SUCCESS COUNSELOR Unavailable Unavailable CICO, A NEVAEH STUDENT SUCCESS COUNSELOR Unavailable Unavailable CICO, A NEVAEH STUDENT SUCCESS COUNSELOR Unavailable Unavailable CICO, A NEVAEH STUDENT SUCCESS COUNSELOR Unavailable Unavailable CICO, A NEVAEH STUDENT SUCCESS COUNSELOR Unavailable Unavailable CICO, A NEVAEH STUDENT SUCCESS COUNSELOR Unavailable Unavailable CICO, A NEVAEH STUDENT SUCCESS COUNSELOR Unavailable Unavailable CICO, A NEVAEH STUDENT SUCCESS COUNSELOR Unavailable Unavailable CICO, A NEVAEH STUDENT SUCCESS COUNSELOR Unavailable Unavailable CICO, A NEVAEH STUDENT SUCCESS COUNSELOR Unavailable Unavailable CICO, A NEVAEH STUDENT SUCCESS COUNSELOR Unavailable Unavailable CICO, A NEVAEH STUDENT SUCCESS COUNSELOR Unavailable Unavailable CICO, A NEVAEH STUDENT SUCCESS COUNSELOR Unavailable Unavailable CICO, A NEVAEH STUDENT SUCCESS COUNSELOR Unavailable Unavailable CICO, A NEVAEH STUDENT SUCCESS COUNSELOR Unavailable Unavailable CICO, A NEVAEH STUDENT SUCCESS COUNSELOR Unavailable Unavailable CICO, A NEVAEH STUDENT SUCCESS COUNSELOR Unavailable Unavailable CICO, A NEVAEH STUDENT SUCCESS COUNSELOR Unavailable Unavailable CICO, A NEVAEH STUDENT SUCCESS COUNSELOR Unavailable Unavailable CICO, A NEVAEH STUDENT SUCCESS COUNSELOR Unavailable Unavailable CICO, A NEVAEH STUDENT SUCCESS COUNSELOR Unavailable Unavailable CICO, A NEVAEH STUDENT SUCCESS COUNSELOR Unavailable Unavailable CICO, A NEVAEH STUDENT SUCCESS COUNSELOR Unavailable Unavailable CICO, A NEVAEH STUDENT SUCCESS COUNSELOR Unavailable Unavailable CICO, A NEVAEH STUDENT SUCCESS COUNSELOR Unavailable Unavailable CICO, A NEVAEH STUDENT SUCCESS COUNSELOR Unavailable Unavailable CICO, A NEVAEH STUDENT SUCCESS COUNSELOR Unavailable Unavailable CICO, A NEVAEH STUDENT SUCCESS COUNSELOR Unavailable Unavailable CICO, A NEVAEH STUDENT SUCCESS COUNSELOR Unavailable Unavailable CICO, A NEVAEH STUDENT SUCCESS COUNSELOR Unavailable Unavailable Mcallister, Aruna Myra PA Unavailable [...] is protected by Article 27-F of the [facility] Public Health law. If you continue you may have access to information: Regarding HIV / AIDS; Provided by facilities licensed or operated by the [facility] Office of Mental Health; or Provided by the [facility] Office for People With Developmental Disabilities. If such information is present, then the following [facility] mandated warning applies: This information has [...] law may result in a fine or half-way sentence or both. A general authorization for the release of medical or other information is NOT sufficient authorization for further disc losure. Allergies and Adverse Reactions Type Description Substance Reaction Status Data Source(s ) bees bees bees Anaphylaxis Active eCW1 ([facility]) Drug allergy Meloxicam meloxicam edema Active eCW1 ([facility]) Drug allergy Codeine Phosphate Drug allergy Anaphylaxis Active e CW1 ([facility]) bees bees bees Anaphylaxis Active eCW1 ([facility]) bees bees bees Anaphylaxis Active eCW1 ([facility]) Drug Allergy NKDA NKDA MEDENT ([facility]) Family History Family Member Name Family Member Gender Family Member Status Date o f Status Description Data Source(s) Unknown Unknown Problem MEDENT ([facility]) Unknown Male Problem MEDENT ([facility] 72 Encounters Encounter Providers Location Date Indications Data Source(s ) Unknown [address] [facility] [address] 05/22/2020 12:00:00 AM EST eCW1 ([facility]) Unknown [address] [facility] [address] 05/08/2020 12:00:00 AM EST eCW1 ([facility]) Unknown [address] [place] [phone] 04/07/2020 12:00:00 AM EST eCW1 ([facility]) Unknown [address] [facility] [address] 03/30/2020 12:00:00 AM EST eCW1 ([facility]) [facility] [address] [place] [phone] 02/03/2020 12:00:00 AM EDT eCW1 ([facility]) Outpatient Attender: Myra saldivar 11/28/2019 03:00:00 PM EDT MEDENT ([facility]) Outpatient Referrer: NEVAEH QUIROS NP 08/27/2019 12:00:09 PM E DT [facility] Outpatient Referrer: NEVAEH QUIROS NP 08/09/2019 01:03:57 PM E DT [facility] OFFICE OUTPATIENT NEW 30 MINUTES Attender: Felicitas Kan am, MD Physical Therapy 06/23/2019 12:45:00 PM EST MEDENT ([facility]) [facility] [place] [address] [place] [address] [place] [phone] 06/15/2019 12:00:00 AM EST eCW1 ([facility]) [facility] [address] [place] [phone] 06/03/2019 12:00:00 AM EST eCW1 ([facility]) [facility] [place] [address] [place] [address] Y [phone] 04/13/2019 12:00:00 AM EST eCW1 ([facility]) Outpatient Referrer: NEVAEH QUIROS NP 02/18/2019 03:20:37 PM E DT [facility] Immunizations Vaccine Date Status Description Data Source(s) INFLUENZA VIRUS VACCINE QUADRIVALENT 2019- (6 MOS AN D UP) 02/07/2020 12:00:00 AM EDT completed [facility] Medications Medication Brand Name Start Date [...] RASH TWO TIMES A DAY SOLD: 07/26/2019 [facility] Insurance Providers Payer name Policy type / Coverage type Policy ID Covered libertarian ID Covered libertarian's relationship to marquez Policy Marquez Plan Information [facility] [id number] SP [id number] [facility] [id number] SP [id number] [facility] O [id number] S [id number] [facility] [id number] Christal [id number] ANSI-Commercial [id number] ANSI-Commercial [id number] ANSI-Commercial [id number] [facility] Health Maintenance Organization (HMO) [id number] Self [id number] [facility] Health Maintenance Organization (O) [id number] Self [id number] ANSI-Commercial [id number] ANSI-Commercial [id number] ANSI-Commercial [id number] ANSI-Commercial [id number] ANSI-Commercial [id number] ANSI-Commercial [id number] [facility] Health Maintenance Organization (HMO) [id number] Self [id number] [facility] Health Maintenance Organization (HMO) [id number] Self [id number] [employer] [id number] Self [id number] [facility] [id number] SP [id number] [facility] [id number] Christal [id number] [facility] [id number] SP [id number] [facility] [id number] SP [id number] [employer] [id number] Self [id number] [facility] [id number] SP [id number] [employer] [id number] Self [id number] [employer] [id number] Self [id number] [employer] [id number] Self [id number] [employer] [place] PPO 302/307 [id number] [employer] [place] PPO 302/307 [id number] [id number] [employer] [place] PPO 302/307 [id number] [facility] [id number] SP [id number] [facility] [id number] SP [id number] [employer] [place] [place] [id number] FA2 [id number] [employer] [place] [id number] 2 [id number] [employer] [place] [id number] FA2 [id number] [employer] [place] [id number] 2 [id number] [employer] PPO O [id number] S [id number] [facility] PPO O UNAVAILABLE S UNAVAILA BLE SELF PAY ONLY UNAVAILABLE UNAV AILABLE BCBS/[employer] Commercial Family Dependent Healthnet Federal Service Medigap Part B Family De pendent BS [place] Commercial Family Dependent EXCELLUS BCBS B [id number] O VYA [id number] [facility] O [id number] [facility] [id number] [facility] Maintenance Organization (HMO) Self [facility] [id number] SP [id number] MEDICAID P [id number] MEDICAID P [id number] MEDICAID P UNAVAILABLE S UNAVAILA BLE [employer] [place] P [id number] P [id number] Problems, Conditions, and Diagnoses Code Display Name Description Problem Type Effective Dates Data Source(s) R92.8 [id number] Other abnormal and i nconclusive findings on diagnostic imaging of breast Problem 05/22/2020 12:00:00 AM EST eCW1 ([facility]) R92.8 [id number] Abnormal finding on breast imaging Proble m 05/09/2020 12:00:00 AM EST eCW1 ([facility]) G89.29 [id number] Other chronic pain Problem 06/15/2019 12:00: 00 AM EST eCW1 ([facility]) G89.29 [id number] Other chronic pain Problem 06/15/2019 12:00: 00 AM EST eCW1 ([facility]) Surgeries/Procedures Procedure Description Date Indications Data Source(s) RADEX SHOULDER COMPLETE MINIMUM 2 VIEWS 06/23/2019 12: 00:00 AM EST MEDENT ([facility] ) Social History Code Duration Value Status Description Data Source(s ) Smoking 06/15/2019 12:00:00 AM EST UNK completed eCW1 ([facility]) Smoking 06/15/2019 12:00:00 AM EST UNK completed eCW1 ([facility]) Smoking 06/15/2019 12:00:00 AM EST UNK completed eCW1 ([facility]) Smoking 06/15/2019 12:00:00 AM EST UNK completed eCW1 ([facility]) Vital Signs ID Date Data Source UNK Name Value Range Interpretation Code Description Data Source(s) Diastolic blood pressure 80 mm[Hg] 80 mm[Hg] MEDENT ([facility]) Systolic blood pressure 134 mm[Hg] 134 mm[Hg] M EDENT ([facility], [facility]) Body mass index (BMI) [Ratio] 33.4 kg/m2 33.4 k g/m2 MEDENT ([facility], [facility]) Body height 68 [in_i] 68 [in_i] MEDENT ([facility]) 5'8" Body weight 220.00 [lb_av] 220.00 [lb_av] MEDEN T ([facility], [facility]) Body temperature 97.8 [degF] 97.8 [degF] MEDENT ([facility]) Oxygen saturation in Arterial blood by Pulse oximetry 98 % 98 % [facility]) Respiratory rate 20 /min 20 /min [facility] ( [facility], [facility]) Heart rate 100 /min 100 /min MEDENT ([facility], [facility]) Body mass index (BMI) [Ratio] 38.0 kg/m2 38.0 k g/m2 MEDENT ([facility]) Body weight 250.00 [lb_av] 250.00 [lb_av] MEDEN T ([facility] ) Body height 68 [in_i] 68 [in_i] MEDENT ([facility] ) 5'8" Body temperature 97.1 [degF] 97.1 [degF] MEDENT ([facility] ) Diastolic blood pressure 84 mm[Hg] 84 mm[Hg] eCW1 ([facility]) Systolic blood pressure 120 mm[Hg] 120 mm[Hg] e CW1 ([facility]) Body temperature 96.9 [degF] 96.9 [degF] eCW1 ( [facility]) Respiratory rate 18 /min 18 /min eCW1 ([facility]) Heart rate 93 /min 93 /min eCW1 ([facility]) Body mass index (BMI) [Ratio] 38.10 kg/m2 38.10 kg/m2 eCW1 ([facility]) Body height [in_us] eCW1 ([facility]) Body weight Measured 250.6 [lb_av] 250.6 [lb_av ] eCW1 ([facility]) Diastolic blood pressure 78 mm[Hg] 78 mm[Hg] eCW1 ([facility]) Systolic blood pressure 126 mm[Hg] 126 mm[Hg] e CW1 ([facility]) Body temperature 98.8 [degF] 98.8 [degF] eCW1 ( [facility]) Respiratory rate 18 /min 18 /min eCW1 ([facility]) Heart rate 88 /min 88 /min eCW1 ([facility]) Body mass index (BMI) [Ratio] 38.34 kg/m2 38.34 kg/m2 eCW1 ([facility]) Body height [in_us] eCW1 ([facility]) Body weight Measured 252.2 [lb_av] 252.2 [lb_av ] eCW1 ([facility]) Diastolic blood pressure 80 mm[Hg] 80 mm[Hg] eCW1 ([facility]) Systolic blood pressure 130 mm[Hg] 130 mm[Hg] e CW1 ([facility]) Body temperature 97.1 [degF] 97.1 [degF] eCW1 ( [facility]) Respiratory rate 18 /min 18 /min eCW1 ([facility]) Heart rate 89 /min 89 /min eCW1 ([facility]) Body mass index (BMI) [Ratio] 38.10 kg/m2 38.10 kg/m2 eCW1 ([facility]) Body height [in_us] eCW1 ([facility]) Body weight Measured 250.6 [lb_av] 250.6 [lb_av ] eCW1 ([facility])
[2020-06-08 12:17] LABS: ALBUMIN 3.4 GM/DL (3.2-5.2); ALT/SGPT 52 U/L (12-78); BILIRUBIN,DIRECT < 0.1 MG/DL (0.0-0.2); BILIRUBIN,TOTAL 0.4 MG/DL (0.2-1.0); BLOOD UREA NITROGEN 12 MG/DL (7-18); CARBON DIOXIDE LEVEL 30 MEQ/L (21-32); CHLORIDE LEVEL 107 MEQ/L (98-107); CK-MB VALUE MASS < 1.0 NG/ML (<3.6); CPK CREATINE PHOSPHOKINASE 94 U/L (26-192); CREATININE FOR GFR 0.64 MG/DL (0.55-1.30); GLOMERULAR FILTRATION RATE > 60.0 (>58); GLUCOSE, FASTING 87 MG/DL (70-100); LIPASE 102 U/L (73-393); MB/CK RELATIVE INDEX 1.06 (< OR =4); POTASSIUM SERUM 4.5 MEQ/L (3.5-5.1); SODIUM LEVEL 140 MEQ/L (136-145); TOTAL PROTEIN 6.7 GM/DL (6.4-8.2); TROPONIN I < 0.02 NG/ML (< 0.10)
--- NOTE | 2020-06-08 14:14 | ECGEPIP ---
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
--- NOTE | 2020-06-08 14:26 | ECGEPIP ---
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
--- NOTE | 2020-06-08 14:32 | REP ---
INDICATION: RUQ pain. COMPARISON: None. TECHNIQUE: Real-time sonographic evaluation of right upper quadrant performed. The study is submitted for interpretation at 2:25 p.m. for reasons unknown to me. FINDINGS: The gallbladder demonstrates no evidence of intraluminal sludge or calculi, wall thickening or pericholecystic fluid. There is no gross biliary dilatation. There is no definite intrahepatic biliary dilatation. Common bile duct could not be visualized due to overlying bowel gas. Liver demonstrates diffuse increased echotexture suggesting diffuse fibrofatty infiltration. There is mild hepatomegaly, the length of the liver is approximately 17.8 cm. Pancreas is grossly unremarkable, not well seen due to overlying bowel gas. The right kidney demonstrates no hydronephrosis, with a normal size of 9.9 cm in length. No free fluid is seen. IMPRESSION: Limited exam due to bowel gas. No gallstones seen in the gallbladder and no intrahepatic biliary dilatation or pericholecystic fluid. Common bile duct could not be visualized due to overlying bowel gas. There is mild hepatomegaly with diffuse fibrofatty infiltration of the liver. The study was performed just prior to 1 p.m. and is submitted to wy for interpretation at 2:25 p.m. for reasons unknown to me. <Electronically signed by Adolfo Nguyễn > 06/08/20 [id number]
[2020-06-08 15:00] LABS: CK-MB VALUE MASS < 1.0 NG/ML (<3.6); CPK CREATINE PHOSPHOKINASE 115 U/L (26-192); MB/CK RELATIVE INDEX 0.87 (< OR =4); TROPONIN I < 0.02 NG/ML (< 0.10)
[2020-06-08 15:15] VITALS: BP 159/72
[2020-06-08] MEDS ORDERED: PROT1TAB2 PO (15:15)
== END 2020-06-08 15:37 | disposition home or self-care (01) ==
LOC: M ED 10:25
DX: R10.13 Epigastric pain (principal); J45.909 Unspecified asthma, uncomplicated; E28.2 Polycystic ovarian syndrome; G43.909 Migraine, unspecified, not intractable, without status migrainosus; Z79.899 Other long term (current) drug therapy; Z88.0 Allergy status to penicillin; Z88.1 Allergy status to other antibiotic agents; Z88.2 Allergy status to sulfonamides; Z88.5 Allergy status to narcotic agent

== ENCOUNTER → 2020-08-14 | Outpatient (CLI) | payer OTHER ==
[~2020-08-14] MED LIST changes: +OTEZ1TAB3 PO; +PROT1TAB2 PO; +VITAMIN D PO
--- NOTE | 2020-08-14 19:42 | REPVR ---
PROCEDURE INFORMATION: Exam: MR Lumbar Spine Without Contrast. Exam date and time: 08/14/2020 5:54 PM Age: 50 years old Clinical indication: Patient HX: Mid and low back pain; Additional info: Pain in thoracic spine TECHNIQUE: Imaging protocol: Multiplanar magnetic resonance images of the lumbar spine without contrast. COMPARISON: No relevant prior studies available. FINDINGS: Minimal Modic type 1 edematous degenerative endplate change at L4-L5. No MR evidence of acute lumbar spine fracture. Lumbar vertebral body heights are maintained. No cord compression. No abnormal cord signal. Disc space heights are preserved. No significant areas of canal or foraminal narrowing. Conus medullaris terminates at the L1 level. Paravertebral soft tissues are unremarkable. IMPRESSION: No acute findings in the lumbar spine. Electronically signed by: Kiel Ta On 08/14/2020 19:41:54 PM
--- NOTE | 2020-08-14 19:43 | REPVR ---
PROCEDURE INFORMATION: Exam: MR Thoracic Spine Without Contrast Exam date and time: 08/14/2020 5:54 PM Age: 50 years old Clinical indication: Pain in thoracic spine; With radiculopathy; Bilateral TECHNIQUE: Imaging protocol: Multiplanar magnetic resonance images of the thoracic spine without contrast. COMPARISON: No relevant prior studies available. FINDINGS: Thoracic vertebral body heights are maintained. No abnormal marrow signal. No cord compression. No abnormal cord signal. Thoracic kyphosis is preserved. Thoracic disc space heights are unremarkable. Soft tissues are unremarkable. IMPRESSION: No acute findings in the thoracic spine. Electronically signed by: Kiel Ta On 08/14/2020 19:43:17 PM
== END ==
LOC: M RAD 16:16
PROVIDERS: ATTEND Physician Assistant
DX: M54.6 Pain in thoracic spine (principal)

== ENCOUNTER → 2020-11-17 | Outpatient (CLI) | payer OTHER ==
[~2020-11-17] MED LIST changes: +PROHANCE 279.3MG/ML 15ML VIAL As Ordered ONE; +PROHANCE 279.3MG/ML 5ML VIAL As Ordered ONE
--- NOTE | 2020-11-17 16:31 | REP ---
INDICATION: HIGH RISK, FAMILY HX. COMPARISON: Comparison breast MRI study is dated February 18, 2019 performed at an outside institution. Comparison mammography is reviewed from May 22, 2020. Comparison mammography from August 04, 2018 is also reviewed. TECHNIQUE: Three Yaima MRI imaging was performed with a dedicated breast coil. Axial, coronal, and sagittal T1 and T2 weighted scans were obtained with and without fat saturation in the usual fashion. The study includes dynamically acquired post gadolinium-enhanced imaging with image subtraction. Maximum intensity projection and multi planar reformation imaging is included as well. This study is interpreted with the aid of FablisticD, an FDA approved computer aided detection (CAD) software program, on a dedicated breast MRI workstation. The gadolinium enhancement dose is 20 mL of intravenous ProHance. FINDINGS: There is a moderate to marked amount of fibroglandular tissue bilaterally corresponding with the mammographic pattern. There is mild background parenchymal enhancement. There is no evidence of axillary lymphadenopathy or significant breast cystic change. High-resolution pre and post-contrast T1 and T2 weighted scans show no suspicious morphologic abnormality in either breast. Dynamically acquired sequential postcontrast images show no suspicious area of enhancement and washout kinetics in either breast to suggest malignancy. Subtraction images show no additional abnormality. There are several cysts again noted in the right breast the largest of which measures 1.8 cm in diameter. This is unchanged. There is a 7 mm intramammary lymph node demonstrating benign pattern enhancement in the lateral aspect of the left breast. IMPRESSION: BI-RADS category 2 benign bilateral breast MRI findings. <Electronically signed by Leif Handy > 11/17/20 2113
== END ==
LOC: M RAD 13:42
PROVIDERS: ATTEND Surgery
DX: Z91.89 Other specified personal risk factors, not elsewhere classified (principal); N60.01 Solitary cyst of right breast
CPT/HCPCS: A9576; C8908

== ENCOUNTER → 2021-02-02 | Outpatient (REF) | payer OTHER ==
[~2021-02-02] MED LIST changes: -PROHANCE 279.3MG/ML 15ML VIAL As Ordered ONE; -PROHANCE 279.3MG/ML 5ML VIAL As Ordered ONE
[2021-02-02 15:02] LABS: HEPATITIS A ANTIBODY IGM NEGATIVE (NEGATIVE); HEPATITIS B CORE ANTIBODY IGM NEGATIVE (NEGATIVE); HEPATITIS B SURFACE ANTIGEN NEGATIVE (NEGATIVE); HIV 1&2 SCREEN CENTAUR NEGATIVE (NEGATIVE)
== END ==
LOC: M SFHCDERM 10:24 → M SFHCADAM 10:24
PROVIDERS: ATTEND Physician Assistant
DX: L40.9 Psoriasis, unspecified (principal)

== ENCOUNTER → 2021-03-29 | Outpatient (CLI) | payer OTHER | LOC: M LABSMTC 10:08 | PROVIDERS: ATTEND Family Medicine | DX: Z11.52 Encounter for screening for COVID-19 (principal); Z20.822 Contact with and (suspected) exposure to COVID-19 | CPT/HCPCS: C9803; U0003 ==

== ENCOUNTER → 2021-05-29 | Outpatient (REF) | payer OTHER | LOC: M SFHCWAGY 19:11 | PROVIDERS: ATTEND Nurse Practitioner Women's Health | DX: Z12.4 Encounter for screening for malignant neoplasm of cervix (principal) | CPT/HCPCS: 87624; G0123 ==

== ENCOUNTER → 2021-06-04 | Outpatient (CLI) | payer OTHER | LOC: M WHC 12:44 | PROVIDERS: ATTEND Surgery | DX: Z91.89 Other specified personal risk factors, not elsewhere classified (principal) ==

== ENCOUNTER → 2021-08-30 | Outpatient (REF) | payer OTHER ==
[2021-08-30 13:27] LABS: HEMATOCRIT 42.4 % (36.0-47.0); HEMOGLOBIN 13.6 g/dl (12.0-15.5); MEAN CORPUSCULAR HEMOGLOBIN 27.6 pg (27.0-33.0); MEAN CORPUSCULAR HGB CONC 32.1 g/dl (32.0-36.5); MEAN CORPUSCULAR VOLUME 86.2 fl (80.0-96.0); PLATELET COUNT, AUTOMATED 220 10^3/uL (150-450); RED BLOOD COUNT 4.92 10^6/uL (4.00-5.40); WHITE BLOOD COUNT 6.6 10^3/uL (4.0-10.0)
[2021-08-30 13:38] LABS: ALBUMIN 3.5 GM/DL (3.2-5.2); ALT/SGPT 49 U/L (12-78); BILIRUBIN,TOTAL 0.5 MG/DL (0.2-1.0); BLOOD UREA NITROGEN 13 MG/DL (7-18); CALCIUM LEVEL 9.5 MG/DL (8.5-10.1); CARBON DIOXIDE LEVEL 27 MEQ/L (21-32); CHLORIDE LEVEL 108 MEQ/L (98-107); CHOLESTEROL LEVEL 208 MG/DL (<200); CHOLESTEROL RISK RATIO 3.586 (<5); CREATININE FOR GFR 0.74 MG/DL (0.55-1.30); FREE T4 0.85 NG/DL (0.76-1.46); GLOMERULAR FILTRATION RATE > 60.0 (>51); GLUCOSE, FASTING 119 MG/DL (70-100); HDL CHOLESTEROL 58 MG/DL (>40); LDL CHOLESTEROL 128 MG/DL (<100); NON-HDL-C 150 MG/DL; POTASSIUM SERUM 4.7 MEQ/L (3.5-5.1); SODIUM LEVEL 141 MEQ/L (136-145); TOTAL PROTEIN 6.4 GM/DL (6.4-8.2); TRIGLYCERIDES LEVEL 110 MG/DL (<150)
[2021-08-30 14:33] LABS: HEMOGLOBIN A1c 5.6 %
== END ==
LOC: M SFHCPLAZ 07:47
PROVIDERS: ATTEND Physician Assistant
DX: E66.01 Morbid (severe) obesity due to excess calories (principal); Z13.1 Encounter for screening for diabetes mellitus; Z13.220 Encounter for screening for lipoid disorders

== ENCOUNTER 2021-10-08 11:57 | Emergency (ER) | payer OTHER ==
[~2021-10-08] VITALS: Ht 172.7 cm; Wt 117.9 kg
[2021-10-08] MEDS ORDERED: OZEM2INJ SC (12:15)
[2021-10-08 14:08] LABS: BASO % 0.5 % (0.0-1.0); EOS # 0.1 10^3/uL (0.0-0.5); EOS % 0.8 % (0.0-3.0); HEMATOCRIT 44.2 % (36.0-47.0); HEMOGLOBIN 14.9 g/dl (12.0-15.5); LYMPH # 2.5 10^3/uL (1.5-5.0); LYMPH % 39.6 % (24.0-44.0); MEAN CORPUSCULAR HEMOGLOBIN 28.7 pg (27.0-33.0); MEAN CORPUSCULAR HGB CONC 33.7 g/dl (32.0-36.5); MONO # 0.8 10^3/uL (0.0-0.8); MONO % 12.8 % (2.0-8.0); NEUTROPHILS # 2.9 10^3/uL (1.5-8.5); NEUTROPHILS % 46.1 % (36.0-66.0); PLATELET COUNT, AUTOMATED 191 10^3/uL (150-450); WHITE BLOOD COUNT 6.2 10^3/uL (4.0-10.0)
[2021-10-08] MEDS ORDERED: ONDANSETRON 4MG/2ML VIAL IV ONE (14:20)
[2021-10-08] MEDS ORDERED: NS 1,000 ML IV ONE (14:20)
[2021-10-08 14:37] LABS: ALBUMIN 3.4 GM/DL (3.2-5.2); ALT/SGPT 43 U/L (12-78); BILIRUBIN,DIRECT 0.1 MG/DL (0.0-0.2); BILIRUBIN,TOTAL 0.4 MG/DL (0.2-1.0); BLOOD UREA NITROGEN 12 MG/DL (7-18); CALCIUM LEVEL 8.7 MG/DL (8.5-10.1); CARBON DIOXIDE LEVEL 27 MEQ/L (21-32); CHLORIDE LEVEL 109 MEQ/L (98-107); GLOMERULAR FILTRATION RATE > 60.0 (>51); GLUCOSE, FASTING 80 MG/DL (70-100); LIPASE 90 U/L (73-393); SODIUM LEVEL 140 MEQ/L (136-145); TOTAL PROTEIN 6.8 GM/DL (6.4-8.2)
[2021-10-08] MEDS ORDERED: ISOVUE-370 76% 100ML VIAL As Ordered ONE (15:42)
[2021-10-08 17:10] VITALS: BP 143/85
== END 2021-10-08 17:10 | disposition home or self-care (01) ==
LOC: M ED 11:57
DX: R10.32 Left lower quadrant pain (principal); R11.0 Nausea; R63.0 Anorexia; E11.9 Type 2 diabetes mellitus without complications; J45.909 Unspecified asthma, uncomplicated; L40.9 Psoriasis, unspecified; E66.9 Obesity, unspecified; Z78.0 Asymptomatic menopausal state; Z79.899 Other long term (current) drug therapy; Z88.0 Allergy status to penicillin; Z88.1 Allergy status to other antibiotic agents; Z88.2 Allergy status to sulfonamides; Z88.5 Allergy status to narcotic agent
CPT/HCPCS: 74177; 80048; 80076; 81001; 83690; 85025; 87086; 96361; 96374; 99284; J2405; Q9967

== ENCOUNTER → 2021-12-19 | Outpatient (CLI) | payer OTHER ==
[~2021-12-19] MED LIST changes: +OZEM2INJ SC; +PROHANCE 279.3MG/ML 15ML VIAL As Ordered ONE; +PROHANCE 279.3MG/ML 5ML VIAL As Ordered ONE
== END ==
LOC: M RAD 14:46
PROVIDERS: ATTEND Nurse Practitioner Women's Health
DX: Z91.89 Other specified personal risk factors, not elsewhere classified (principal); Z80.3 Family history of malignant neoplasm of breast; N60.19 Diffuse cystic mastopathy of unspecified breast; N60.09 Solitary cyst of unspecified breast
CPT/HCPCS: A9576; C8908

== ENCOUNTER 2022-02-13 05:30 | Emergency (ER) | payer OTHER ==
[~2022-02-13] VITALS: Ht 172.7 cm; Wt 110.9 kg
[~2022-02-13 05:30] MED LIST changes: -PROHANCE 279.3MG/ML 15ML VIAL As Ordered ONE; -PROHANCE 279.3MG/ML 5ML VIAL As Ordered ONE
[2022-02-13] MEDS: METOPROLOL 5 MG/5 ML VIAL IV SCH ×5 (06:31→08:34)
[2022-02-13 06:43] LABS: BASO # 0.1 10^3/uL (0.0-0.2); BASO % 0.7 % (0.0-1.0); EOS # 0.1 10^3/uL (0.0-0.5); EOS % 1.9 % (0.0-3.0); HEMATOCRIT 45.6 % (36.0-47.0); HEMOGLOBIN 15.1 g/dl (12.0-15.5); LYMPH # 2.9 10^3/uL (1.5-5.0); LYMPH % 41.3 % (24.0-44.0); MEAN CORPUSCULAR HEMOGLOBIN 28.2 pg (27.0-33.0); MEAN CORPUSCULAR HGB CONC 33.1 g/dl (32.0-36.5); MEAN CORPUSCULAR VOLUME 85.2 fl (80.0-96.0); MONO # 0.7 10^3/uL (0.0-0.8); MONO % 9.4 % (2.0-8.0); NEUTROPHILS # 3.2 10^3/uL (1.5-8.5); NEUTROPHILS % 46.6 % (36.0-66.0); PLATELET COUNT, AUTOMATED 257 10^3/uL (150-450); RED BLOOD COUNT 5.35 10^6/uL (4.00-5.40); WHITE BLOOD COUNT 6.9 10^3/uL (4.0-10.0)
[2022-02-13 07:01] LABS: INR 0.79; PARTIAL THROMBOPLASTIN TIME 30.8 SECONDS (25.9-37.0); PROTHROMBIN TIME 11.4 SECONDS (12.7-14.5)
[2022-02-13 07:04] LABS: D-DIMER QUANT 348.64 ng/ml (<500)
[2022-02-13 07:13] LABS: ALBUMIN 3.7 GM/DL (3.2-5.2); ALT/SGPT 33 U/L (12-78); BILIRUBIN,TOTAL 0.4 MG/DL (0.2-1.0); BLOOD UREA NITROGEN 21 MG/DL (7-18); CALCIUM LEVEL 9.3 MG/DL (8.5-10.1); CARBON DIOXIDE LEVEL 25 MEQ/L (21-32); CHLORIDE LEVEL 111 MEQ/L (98-107); CREATININE FOR GFR 0.86 MG/DL (0.55-1.30); GLOMERULAR FILTRATION RATE > 60.0 (>51); GLUCOSE, FASTING 117 MG/DL (70-100); NT-PRO BNP 44 PG/ML (<125); POTASSIUM SERUM 4.2 MEQ/L (3.5-5.1); SODIUM LEVEL 143 MEQ/L (136-145); TOTAL PROTEIN 7.1 GM/DL (6.4-8.2)
[2022-02-13 07:18] LABS: CK-MB VALUE MASS < 1.0 NG/ML (<3.6); CPK CREATINE PHOSPHOKINASE 87 U/L (26-192); MB/CK RELATIVE INDEX 1.15 (< OR =4)
[2022-02-13 08:34] VITALS: BP 137/98
[2022-02-13] MEDS ORDERED: AMIODARONE HCL 150 MG in IV 1 EA IV STA ×2 (08:45→10:05)
[2022-02-13] MEDS ORDERED: METOPROLOL TART 50 MG TAB PO ONE (08:45)
[2022-02-13 09:47] LABS: RSV AMPLIFICATION NEGATIVE (NEGATIVE)
[2022-02-13] MEDS ORDERED: ATEN25TA PO (11:43)
[2022-02-13 11:46] VITALS: BP 121/72
== END 2022-02-13 12:01 | disposition home or self-care (01) ==
LOC: M ED 05:30
DX: I48.91 Unspecified atrial fibrillation (principal); E11.9 Type 2 diabetes mellitus without complications; Z79.4 Long term (current) use of insulin; C50.919 Malignant neoplasm of unspecified site of unspecified female breast; Z88.0 Allergy status to penicillin; Z88.1 Allergy status to other antibiotic agents; Z88.2 Allergy status to sulfonamides; Z88.5 Allergy status to narcotic agent
CPT/HCPCS: 71046; 80053; 82550; 82553; 83880; 84443; 84484; 85025; 85379; 85610; 85730; 87631; 93005; 96365; 96375; 96376; 99285; J0282

== ENCOUNTER → 2022-03-12 | Outpatient (CLI) | payer OTHER ==
[~2022-03-12] MED LIST changes: +ATEN25TA PO
== END ==
LOC: M CARPUL 12:14
PROVIDERS: ATTEND Physician Assistant
DX: I48.91 Unspecified atrial fibrillation (principal)

== ENCOUNTER → 2022-04-18 | Outpatient (CLI) | payer OTHER | LOC: M SLEEP 20:00 | PROVIDERS: ATTEND Physician Assistant | DX: R06.83 Snoring (principal); R40.0 Somnolence ==

== ENCOUNTER → 2022-06-20 | Outpatient (CLI) | payer OTHER, SELFPAY ==
[~2022-06-20] MED LIST changes: +APRE30TA3 PO; -OTEZ1TAB3 PO
== END ==
LOC: M WHC 16:01
PROVIDERS: ATTEND Nurse Practitioner Women's Health
DX: Z12.31 Encounter for screening mammogram for malignant neoplasm of breast (principal); Z91.89 Other specified personal risk factors, not elsewhere classified

== ENCOUNTER → 2022-06-25 | Outpatient (REF) | payer OTHER ==
[2022-06-25 13:22] LABS: BLOOD UREA NITROGEN 15 MG/DL (9-23); CALCIUM LEVEL 9.2 MG/DL (8.5-10.1); CARBON DIOXIDE LEVEL 31 MMOL/L (20-31); CHLORIDE LEVEL 104 MMOL/L (98-107); CREATININE FOR GFR 0.82 MG/DL (0.55-1.30); GLOMERULAR FILTRATION RATE > 60.0 (>51); GLUCOSE, FASTING 104 MG/DL (60-100); POTASSIUM SERUM 4.7 MMOL/L (3.5-5.1); SODIUM LEVEL 141 MMOL/L (136-145)
[2022-06-25 13:24] LABS: HEMATOCRIT 44.9 % (36.0-47.0); HEMOGLOBIN 14.5 g/dl (12.0-15.5); MEAN CORPUSCULAR HEMOGLOBIN 28.2 pg (27.0-33.0); MEAN CORPUSCULAR HGB CONC 32.3 g/dl (32.0-36.5); MEAN CORPUSCULAR VOLUME 87.4 fl (80.0-96.0); PLATELET COUNT, AUTOMATED 269 10^3/uL (150-450); RED BLOOD COUNT 5.14 10^6/uL (4.00-5.40)
[2022-06-25 13:45] LABS: CREATININE, URINE 202.3 MG/DL; MAU/CREAT RATIO 8.4 MCG/MG (0.0-30.0)
[2022-06-25 15:17] LABS: HEMOGLOBIN A1c 5.3 % (4.0-6.0)
== END ==
LOC: M SFHCADAM 08:18
PROVIDERS: ATTEND Physician Assistant
DX: I48.91 Unspecified atrial fibrillation (principal); I10 Essential (primary) hypertension; E66.01 Morbid (severe) obesity due to excess calories; G47.33 Obstructive sleep apnea (adult) (pediatric); I25.2 Old myocardial infarction

== ENCOUNTER 2022-08-16 16:36 | Emergency (ER) | payer OTHER ==
[~2022-08-16] VITALS: Ht 172.7 cm; Wt 115.0 kg
[2022-08-16] MEDS ORDERED: ACETAMINOPHEN 500 MG TAB PO ONE (17:45)
[2022-08-16 18:38] VITALS: BP 165/94
[2022-08-16 18:44] LABS: BASO # 0.1 10^3/uL (0.0-0.2); BASO % 0.6 % (0.0-1.0); EOS # 0.1 10^3/uL (0.0-0.5); HEMATOCRIT 45.7 % (36.0-47.0); LYMPH # 3.1 10^3/uL (1.5-5.0); LYMPH % 36.6 % (24.0-44.0); MEAN CORPUSCULAR HEMOGLOBIN 28.7 pg (27.0-33.0); MEAN CORPUSCULAR HGB CONC 32.8 g/dl (32.0-36.5); MEAN CORPUSCULAR VOLUME 87.4 fl (80.0-96.0); MONO # 0.6 10^3/uL (0.0-0.8); MONO % 7.4 % (2.0-8.0); NEUTROPHILS # 4.5 10^3/uL (1.5-8.5); NEUTROPHILS % 54.2 % (36.0-66.0); PLATELET COUNT, AUTOMATED 247 10^3/uL (150-450); RED BLOOD COUNT 5.23 10^6/uL (4.00-5.40); WHITE BLOOD COUNT 8.4 10^3/uL (4.0-10.0)
[2022-08-16 19:03] LABS: INR 1.01; PROTHROMBIN TIME 13.5 SECONDS (12.5-14.5)
[2022-08-16 19:04] LABS: PARTIAL THROMBOPLASTIN TIME 30.4 SECONDS (24.8-34.2)
[2022-08-16 19:07] LABS: CK-MB VALUE MASS < 1.0 NG/ML (<3.6)
[2022-08-16 19:09] LABS: BLOOD UREA NITROGEN 18 MG/DL (9-23); CARBON DIOXIDE LEVEL 28 MMOL/L (20-31); CHLORIDE LEVEL 105 MMOL/L (98-107); CREATININE FOR GFR 0.81 MG/DL (0.55-1.30); GLOMERULAR FILTRATION RATE > 60.0 (>51); GLUCOSE, FASTING 85 MG/DL (60-100); POTASSIUM SERUM 4.5 MMOL/L (3.5-5.1); SODIUM LEVEL 141 MMOL/L (136-145)
[2022-08-16 19:19] LABS: CPK CREATINE PHOSPHOKINASE 63 U/L (34-145); MB/CK RELATIVE INDEX 1.58 (< OR =4)
== END 2022-08-16 21:18 | disposition home or self-care (01) ==
LOC: M ED 16:36
DX: R07.89 Other chest pain (principal); Z88.0 Allergy status to penicillin; Z88.2 Allergy status to sulfonamides; Z88.5 Allergy status to narcotic agent; I10 Essential (primary) hypertension; I48.91 Unspecified atrial fibrillation; I25.2 Old myocardial infarction; N80.9 Endometriosis, unspecified; E11.9 Type 2 diabetes mellitus without complications; Z79.899 Other long term (current) drug therapy

== ENCOUNTER → 2022-08-26 | Outpatient (REF) | payer OTHER | LOC: M SFHCPLAZ 10:05 → M LAB REF 10:05 | PROVIDERS: ATTEND Physician Assistant | DX: R05.1 Acute cough (principal) ==

== ENCOUNTER → 2022-08-30 | Outpatient (REF) | payer OTHER ==
[2022-08-30 13:50] LABS: FOLATE 14.2 NG/ML (>5.4)
== END ==
LOC: M SFHCADAM 11:31
PROVIDERS: ATTEND Physician Assistant
DX: G43.009 Migraine without aura, not intractable, without status migrainosus (principal)

== ENCOUNTER → 2022-10-21 | Outpatient (REF) | payer OTHER | LOC: M SFHCDERM 10:54 | PROVIDERS: ATTEND Physician Assistant | DX: Z53.9 Procedure and treatment not carried out, unspecified reason (principal) ==

== ENCOUNTER → 2022-11-22 | Outpatient (REF) | payer OTHER ==
[2022-11-22 13:23] LABS: BASO % 0.5 % (0.0-1.0); EOS # 0.1 10^3/uL (0.0-0.5); EOS % 1.5 % (0.0-3.0); HEMATOCRIT 44.3 % (36.0-47.0); LYMPH # 2.3 10^3/uL (1.5-5.0); LYMPH % 37.6 % (24.0-44.0); MEAN CORPUSCULAR HEMOGLOBIN 27.6 pg (27.0-33.0); MEAN CORPUSCULAR HGB CONC 31.6 g/dl (32.0-36.5); MEAN CORPUSCULAR VOLUME 87.4 fl (80.0-96.0); MONO # 0.5 10^3/uL (0.0-0.8); MONO % 8.7 % (2.0-8.0); NEUTROPHILS # 3.1 10^3/uL (1.5-8.5); NEUTROPHILS % 51.4 % (36.0-66.0); PLATELET COUNT, AUTOMATED 252 10^3/uL (150-450); RED BLOOD COUNT 5.07 10^6/uL (4.00-5.40); WHITE BLOOD COUNT 6.1 10^3/uL (4.0-10.0)
[2022-11-22 13:50] LABS: ALBUMIN 3.8 G/DL (3.2-5.2); ALKALINE PHOSPHATASE 88 U/L (46-116); ALT/SGPT 13 U/L (7.0-40); AST/SGOT 26 U/L (<34); BILIRUBIN,TOTAL 0.9 MG/DL (0.3-1.2); BLOOD UREA NITROGEN 17 MG/DL (9-23); CALCIUM LEVEL 8.7 MG/DL (8.5-10.1); CARBON DIOXIDE LEVEL 33 MMOL/L (20-31); CHLORIDE LEVEL 103 MMOL/L (98-107); CHOLESTEROL LEVEL 139 MG/DL (<200); CHOLESTEROL RISK RATIO 2.68 (<5); CREATININE FOR GFR 0.75 MG/DL (0.55-1.30); GLOMERULAR FILTRATION RATE > 60.0 (>51); GLUCOSE, FASTING 103 MG/DL (60-100); HDL CHOLESTEROL 51.8 MG/DL (>40); MAGNESIUM LEVEL 2.1 MG/DL (1.8-2.4); NON-HDL-C 87.2 MG/DL; SODIUM LEVEL 139 MMOL/L (136-145); TOTAL PROTEIN 6.7 G/DL (5.7-8.2); TRIGLYCERIDES LEVEL 71 MG/DL (<150)
[2022-11-22 13:53] LABS: RHEUMATOID FACTOR QUANT 4.8 IU/ML (<14)
[2022-11-24 00:08] LABS: ANA (HEP2) Negative (.); CYCLIC CITRULLINATED PEPTIDE 4 units (0-19)
== END ==
LOC: M SFHCADAM 09:14
PROVIDERS: ATTEND Physician Assistant
DX: M19.90 Unspecified osteoarthritis, unspecified site (principal); I48.91 Unspecified atrial fibrillation; I10 Essential (primary) hypertension; L40.9 Psoriasis, unspecified

== ENCOUNTER → 2023-01-03 | Outpatient (CLI) | payer OTHER ==
[~2023-01-03] MED LIST changes: +PROHANCE 279.3MG/ML 15ML VIAL As Ordered ONE; +PROHANCE 279.3MG/ML 5ML VIAL As Ordered ONE
== END ==
LOC: M RAD 15:26
PROVIDERS: ATTEND Nurse Practitioner Women's Health
DX: R92.2 Inconclusive mammogram (principal); Z80.3 Family history of malignant neoplasm of breast; Z12.39 Encounter for other screening for malignant neoplasm of breast; Z91.89 Other specified personal risk factors, not elsewhere classified
CPT/HCPCS: A9576; C8908

== ENCOUNTER → 2023-03-20 | Outpatient (REF) | payer OTHER ==
[~2023-03-20] MED LIST changes: -PROHANCE 279.3MG/ML 15ML VIAL As Ordered ONE; -PROHANCE 279.3MG/ML 5ML VIAL As Ordered ONE
[2023-03-20 15:54] LABS: CHOLESTEROL RISK RATIO 2.98 (<5); HDL CHOLESTEROL 49.5 MG/DL (>40); LDL CHOLESTEROL 76.5 MG/DL (<100); NON-HDL-C 98.5 MG/DL
== END ==
LOC: M LABDRWAD 13:04
PROVIDERS: ATTEND Internal Medicine Cardiovascular Disease
DX: E78.00 Pure hypercholesterolemia, unspecified (principal)

== ENCOUNTER → 2023-06-17 | Outpatient (CLI) | payer OTHER, SELFPAY ==
[~2023-06-17] MED LIST changes: +AMIT10TA7 PO
[2023-06-17 17:42] LABS: BASO % 0.4 % (0.0-1.0); EOS # 0.1 10^3/uL (0.0-0.5); EOS % 1.3 % (0.0-3.0); HEMATOCRIT 42.7 % (36.0-47.0); HEMOGLOBIN 13.9 g/dl (12.0-15.5); LYMPH # 2.8 10^3/uL (1.5-5.0); LYMPH % 36.2 % (24.0-44.0); MEAN CORPUSCULAR HEMOGLOBIN 27.7 pg (27.0-33.0); MEAN CORPUSCULAR HGB CONC 32.6 g/dl (32.0-36.5); MEAN CORPUSCULAR VOLUME 85.1 fl (80.0-96.0); MONO # 0.8 10^3/uL (0.0-0.8); MONO % 10.2 % (2.0-8.0); NEUTROPHILS % 51.6 % (36.0-66.0); PLATELET COUNT, AUTOMATED 251 10^3/uL (150-450); RED BLOOD COUNT 5.02 10^6/uL (4.00-5.40); WHITE BLOOD COUNT 7.7 10^3/uL (4.0-10.0)
[2023-06-17 18:09] LABS: FREE T4 0.97 NG/DL (0.89-1.76); THYROID STIMULATING HORMONE 1.069 uIU/ML (0.55-4.78)
[2023-06-17 18:10] LABS: HEMOGLOBIN A1c 5.8 % (4.0-6.0)
[2023-06-17 18:11] LABS: ALBUMIN 3.5 G/DL (3.2-5.2); ALKALINE PHOSPHATASE 95 U/L (46-116); ALT/SGPT 33 U/L (7.0-40); AST/SGOT 16 U/L (<34); BILIRUBIN,TOTAL 0.5 MG/DL (0.3-1.2); BLOOD UREA NITROGEN 17 MG/DL (9-23); CALCIUM LEVEL 9.2 MG/DL (8.5-10.1); CARBON DIOXIDE LEVEL 32 MMOL/L (20-31); CHLORIDE LEVEL 102 MMOL/L (98-107); CHOLESTEROL LEVEL 157 MG/DL (<200); GLOMERULAR FILTRATION RATE > 60.0 (>51); GLUCOSE, FASTING 86 MG/DL (60-100); LDL CHOLESTEROL 82.8 MG/DL (<100); POTASSIUM SERUM 3.8 MMOL/L (3.5-5.1); SODIUM LEVEL 139 MMOL/L (136-145); TOTAL PROTEIN 6.8 G/DL (5.7-8.2); TRIGLYCERIDES LEVEL 126 MG/DL (<150)
== END ==
LOC: M LAB 17:00
PROVIDERS: ATTEND Physician Assistant
DX: Z00.00 Encounter for general adult medical examination without abnormal findings (principal)

== ENCOUNTER → 2023-06-17 | Outpatient (REF) | payer OTHER | LOC: M SFHCADAM 12:12 | PROVIDERS: ATTEND Physician Assistant | DX: E78.00 Pure hypercholesterolemia, unspecified (principal); R53.82 Chronic fatigue, unspecified; I10 Essential (primary) hypertension; I48.91 Unspecified atrial fibrillation; Z13.1 Encounter for screening for diabetes mellitus; E66.01 Morbid (severe) obesity due to excess calories; Z53.9 Procedure and treatment not carried out, unspecified reason ==

== ENCOUNTER → 2023-06-17 | Outpatient (CLI) | payer OTHER, SELFPAY ==
[~2023-06-17] MED LIST changes: +ATOR40TA75 PO; +B-12100010 PO; +CHOL125C6 PO; +ELIQ5TAB PO; +FREM225A SC; +HYDR-3490 PO; +HYDR12CA PO; +LISI2.5T9 PO; +MAGN100C3 PO; +POTA1TAB23 PO; +PROBCAP14 PO; +RIZA10TA58 PO; +SEMA0.257 SQ; +SEMA2PEN SQ; +STEL90IN SC
== END ==
LOC: M LAB 16:57
PROVIDERS: ATTEND Physician Assistant
DX: I48.0 Paroxysmal atrial fibrillation (principal); R06.02 Shortness of breath

== ENCOUNTER → 2023-06-23 | Outpatient (REF) | payer OTHER ==
[~2023-06-23] MED LIST changes: -ATOR40TA75 PO; -B-12100010 PO; -CHOL125C6 PO; -ELIQ5TAB PO; -FREM225A SC; -HYDR-3490 PO; -HYDR12CA PO; -LISI2.5T9 PO; -MAGN100C3 PO; -POTA1TAB23 PO; -PROBCAP14 PO; -RIZA10TA58 PO; -SEMA0.257 SQ; -SEMA2PEN SQ; -STEL90IN SC
[2023-06-23 15:43] LABS: C REACTIVE PROTEIN QUANTITATIV 1.4 MG/DL (<1.0)
[2023-06-23 16:05] LABS: TOTAL 25(OH) VITAMIN D 43.5 NG/ML (20.0-100.0)
== END ==
LOC: M SFHCRHEU 10:34
PROVIDERS: ATTEND Internal Medicine
DX: M19.041 Primary osteoarthritis, right hand (principal); L40.9 Psoriasis, unspecified

== ENCOUNTER → 2023-06-23 | Outpatient (CLI) | payer OTHER | LOC: M PLALAB 11:34 | PROVIDERS: ATTEND Internal Medicine | DX: M19.041 Primary osteoarthritis, right hand (principal); M25.50 Pain in unspecified joint ==

== ENCOUNTER → 2023-06-25 | Outpatient (CLI) | payer OTHER | LOC: M WHC 07:19 | PROVIDERS: ATTEND Nurse Practitioner Women's Health | DX: Z12.31 Encounter for screening mammogram for malignant neoplasm of breast (principal); Z80.3 Family history of malignant neoplasm of breast; Z91.89 Other specified personal risk factors, not elsewhere classified ==

== ENCOUNTER 2023-07-02 16:52 | Emergency (ER) | payer OTHER ==
[~2023-07-02] VITALS: Ht 172.7 cm; Wt 118.7 kg
[2023-07-02 18:20] VITALS: BP 142/74
[2023-07-02] MEDS: NITROGLYCERIN 2% OINT 1 GM *U/D* PKT TOP ONE (18:20)
[2023-07-02] MEDS: KETOROLAC 30 MG/ML 1ML VIAL IV ONE (18:21)
[2023-07-02 18:26] LABS: BASO % 0.5 % (0.0-1.0); EOS # 0.1 10^3/uL (0.0-0.5); EOS % 2.4 % (0.0-3.0); HEMATOCRIT 41.6 % (36.0-47.0); HEMOGLOBIN 13.9 g/dl (12.0-15.5); LYMPH # 2.8 10^3/uL (1.5-5.0); LYMPH % 47.2 % (24.0-44.0); MEAN CORPUSCULAR HEMOGLOBIN 28.7 pg (27.0-33.0); MEAN CORPUSCULAR HGB CONC 33.4 g/dl (32.0-36.5); MEAN CORPUSCULAR VOLUME 85.8 fl (80.0-96.0); MONO # 0.6 10^3/uL (0.0-0.8); MONO % 10.4 % (2.0-8.0); NEUTROPHILS # 2.3 10^3/uL (1.5-8.5); NEUTROPHILS % 39.2 % (36.0-66.0); PLATELET COUNT, AUTOMATED 226 10^3/uL (150-450); RED BLOOD COUNT 4.85 10^6/uL (4.00-5.40); WHITE BLOOD COUNT 5.9 10^3/uL (4.0-10.0)
[2023-07-02 18:41] LABS: INR 1.04; PROTHROMBIN TIME 13.3 SECONDS (12.5-14.5)
[2023-07-02 18:44] LABS: D-DIMER QUANT < 0.27 ug/mL (<0.5)
[2023-07-02 18:52] LABS: HCG, SERUM QUALITATIVE NEGATIVE (NEGATIVE)
[2023-07-02 18:54] LABS: ALBUMIN 3.7 G/DL (3.2-5.2); ALKALINE PHOSPHATASE 94 U/L (46-116); ALT/SGPT 33 U/L (7.0-40); AST/SGOT 16 U/L (<34); BILIRUBIN,DIRECT 0.1 MG/DL (<0.4); BILIRUBIN,TOTAL 0.4 MG/DL (0.3-1.2); BLOOD UREA NITROGEN 15 MG/DL (9-23); CALCIUM LEVEL 8.5 MG/DL (8.5-10.1); CARBON DIOXIDE LEVEL 31 MMOL/L (20-31); CHLORIDE LEVEL 105 MMOL/L (98-107); CK-MB VALUE MASS < 1.0 NG/ML (<3.6); CPK CREATINE PHOSPHOKINASE 93 U/L (34-145); GLOMERULAR FILTRATION RATE > 60.0 (>51); GLUCOSE, FASTING 86 MG/DL (60-100); MB/CK RELATIVE INDEX 1.07 (< OR =4); POTASSIUM SERUM 4.2 MMOL/L (3.5-5.1); SODIUM LEVEL 140 MMOL/L (136-145); TOTAL PROTEIN 6.6 G/DL (5.7-8.2)
[2023-07-02] MEDS ORDERED: SEMA2PEN SQ (20:20)
[2023-07-02] MEDS ORDERED: ATEN25TA PO (20:20)
[2023-07-02] MEDS ORDERED: CHOL125C6 PO (20:20)
[2023-07-02] MEDS ORDERED: RIZA10TA58 PO ×2 (20:25)
[2023-07-02] MEDS ORDERED: POTA1TAB23 PO (20:25)
[2023-07-02 20:27] LABS: CK-MB VALUE MASS < 1.0 NG/ML (<3.6); CPK CREATINE PHOSPHOKINASE 112 U/L (34-145); MB/CK RELATIVE INDEX 0.89 (< OR =4)
[2023-07-02] MEDS ORDERED: HYDR-3490 PO (20:30)
[2023-07-02] MEDS ORDERED: STEL90IN SC (20:36)
[2023-07-02] MEDS ORDERED: LISI2.5T9 PO (20:36)
[2023-07-02] MEDS ORDERED: FREM225A SC (20:36)
[2023-07-02] MEDS ORDERED: ELIQ5TAB PO (20:36)
[2023-07-02] MEDS ORDERED: SEMA0.257 SQ (20:37)
[2023-07-02] MEDS ORDERED: MAGN100C3 PO (20:41)
[2023-07-02] MEDS ORDERED: PROBCAP14 PO (20:41)
[2023-07-02] MEDS ORDERED: B-12100010 PO (20:41)
[2023-07-02] MEDS ORDERED: ATOR40TA75 PO (20:42)
[2023-07-02] MEDS ORDERED: HYDR12CA PO (20:45)
[2023-07-02] MEDS ORDERED: HOME MED LIST COMPLETE! XX SCH (20:50)
[2023-07-02 21:10] VITALS: BP 153/81; TEMP 98.3; O2SAT 99
== END 2023-07-02 21:13 | disposition home or self-care (01) ==
LOC: M ED 16:52
DX: R07.9 Chest pain, unspecified (principal); I10 Essential (primary) hypertension; I48.91 Unspecified atrial fibrillation; Z88.0 Allergy status to penicillin; Z88.2 Allergy status to sulfonamides; Z88.5 Allergy status to narcotic agent
CPT/HCPCS: 71045; 80048; 80076; 82550; 82553; 84484; 84703; 85025; 85379; 85610; 86140; 93005; 93041; 94760; 96374; 99285; J1885

== ENCOUNTER 2023-08-03 06:38 | Emergency (ER) | payer OTHER ==
[~2023-08-03] VITALS: Ht 172.7 cm; Wt 118.2 kg
[~2023-08-03 06:38] MED LIST changes: +ATOR40TA75 PO; +B-12100010 PO; +CHOL125C6 PO; +ELIQ5TAB PO; +FREM225A SC; +HYDR-3490 PO; +HYDR12CA PO; +LISI2.5T9 PO; +MAGN100C3 PO; +POTA1TAB23 PO; +PROBCAP14 PO; +RIZA10TA58 PO; +SEMA0.257 SQ; +SEMA2PEN SQ; +STEL90IN SC
[2023-08-03 07:43] LABS: BASO % 0.5 % (0.0-1.0); EOS # 0.1 10^3/uL (0.0-0.5); EOS % 1.8 % (0.0-3.0); HEMATOCRIT 41.3 % (36.0-47.0); HEMOGLOBIN 13.9 g/dl (12.0-15.5); LYMPH # 2.3 10^3/uL (1.5-5.0); MEAN CORPUSCULAR HEMOGLOBIN 28.7 pg (27.0-33.0); MEAN CORPUSCULAR HGB CONC 33.7 g/dl (32.0-36.5); MEAN CORPUSCULAR VOLUME 85.3 fl (80.0-96.0); MONO # 0.5 10^3/uL (0.0-0.8); MONO % 7.9 % (2.0-8.0); NEUTROPHILS % 50.6 % (36.0-66.0); PLATELET COUNT, AUTOMATED 215 10^3/uL (150-450); RED BLOOD COUNT 4.84 10^6/uL (4.00-5.40)
[2023-08-03 08:01] LABS: BLOOD UREA NITROGEN 14 MG/DL (9-23); CALCIUM LEVEL 8.8 MG/DL (8.5-10.1); CARBON DIOXIDE LEVEL 26 MMOL/L (20-31); CHLORIDE LEVEL 106 MMOL/L (98-107); CK-MB VALUE MASS < 1.0 NG/ML (<3.6); CREATININE FOR GFR 0.62 MG/DL (0.55-1.30); GLOMERULAR FILTRATION RATE > 60.0 (>51); GLUCOSE, FASTING 112 MG/DL (60-100); POTASSIUM SERUM 5.1 MMOL/L (3.5-5.1); SODIUM LEVEL 138 MMOL/L (136-145)
[2023-08-03 08:03] LABS: CPK CREATINE PHOSPHOKINASE 77 U/L (34-145); MB/CK RELATIVE INDEX 1.29 (< OR =4)
[2023-08-03] MEDS: ONDANSETRON 4MG 2ML VIAL IV ONE (08:28)
[2023-08-03] MEDS: MORPHINE 4 MG/ML 1ML VIAL IV PRN (08:29)
[2023-08-03 09:02] LABS: CK-MB VALUE MASS < 1.0 NG/ML (<3.6)
[2023-08-03 09:04] LABS: CPK CREATINE PHOSPHOKINASE 69 U/L (34-145); MB/CK RELATIVE INDEX 1.44 (< OR =4)
[2023-08-03] MEDS ORDERED: ISOVUE-370 76% 100ML VIAL As Ordered ONE (09:28)
[2023-08-03 12:12] VITALS: BP 111/64; TEMP 97.1; O2SAT 98
== END 2023-08-03 12:15 | disposition home or self-care (01) ==
LOC: M ED 06:38
DX: R07.9 Chest pain, unspecified (principal); R91.8 Other nonspecific abnormal finding of lung field; I48.91 Unspecified atrial fibrillation; I10 Essential (primary) hypertension; E78.5 Hyperlipidemia, unspecified; J45.909 Unspecified asthma, uncomplicated; Z79.01 Long term (current) use of anticoagulants; Z79.899 Other long term (current) drug therapy; Z88.0 Allergy status to penicillin; Z88.2 Allergy status to sulfonamides; Z88.5 Allergy status to narcotic agent
CPT/HCPCS: 71045; 71275; 80048; 82550; 82553; 84484; 85025; 93005; 93041; 94760; 96374; 96375; 99285; J2405; Q9967

== ENCOUNTER → 2023-11-05 | Outpatient (REF) | payer OTHER ==
[2023-11-05 19:17] LABS: HEMATOCRIT 42.7 % (36.0-47.0); HEMOGLOBIN 13.9 g/dl (12.0-15.5); MEAN CORPUSCULAR HEMOGLOBIN 28.1 pg (27.0-33.0); MEAN CORPUSCULAR HGB CONC 32.6 g/dl (32.0-36.5); MEAN CORPUSCULAR VOLUME 86.4 fl (80.0-96.0); PLATELET COUNT, AUTOMATED 256 10^3/uL (150-450); RED BLOOD COUNT 4.94 10^6/uL (4.00-5.40); WHITE BLOOD COUNT 6.7 10^3/uL (4.0-10.0)
[2023-11-05 19:31] LABS: HEPATITIS B SURFACE ANTIBODY NEGATIVE (POSITIVE)
[2023-11-05 19:43] LABS: HEPATITIS B SURFACE ANTIGEN NEGATIVE (NEGATIVE)
[2023-11-05 19:56] LABS: HIV 1&2 SCREEN NEGATIVE (NEGATIVE)
[2023-11-05 20:04] LABS: HEPATITIS C VIRUS ABY INDEX < 0.02 INDEX (<0.8)
[2023-11-10 12:54] LABS: ALBUMIN 3.6 G/DL (3.2-5.2); ALKALINE PHOSPHATASE 95 U/L (46-116); ALT/SGPT 42 U/L (7.0-40); AST/SGOT 18 U/L (<34); BILIRUBIN,TOTAL 0.6 MG/DL (0.3-1.2); BLOOD UREA NITROGEN 15 MG/DL (9-23); CALCIUM LEVEL 9.2 MG/DL (8.5-10.1); CARBON DIOXIDE LEVEL 30 MMOL/L (20-31); CHLORIDE LEVEL 103 MMOL/L (98-107); CREATININE FOR GFR 0.79 MG/DL (0.55-1.30); GLOMERULAR FILTRATION RATE > 60.0 (>51); GLUCOSE, FASTING 94 MG/DL (60-100); POTASSIUM SERUM 4.5 MMOL/L (3.5-5.1); SODIUM LEVEL 138 MMOL/L (136-145); TOTAL PROTEIN 6.5 G/DL (5.7-8.2)
== END ==
LOC: M SFHCDERM 11:27
PROVIDERS: ATTEND Physician Assistant
DX: L40.9 Psoriasis, unspecified (principal)

== ENCOUNTER → 2023-11-05 | Outpatient (REF) | payer OTHER ==
[2023-11-05 19:27] LABS: MAGNESIUM LEVEL 1.9 MG/DL (1.8-2.4)
[2023-11-05 19:31] LABS: THYROID STIMULATING HORMONE 1.554 uIU/ML (0.55-4.78)
== END ==
LOC: M LABDRWAD 17:12
PROVIDERS: ATTEND Physician Assistant
DX: I48.0 Paroxysmal atrial fibrillation (principal)

== ENCOUNTER → 2023-11-08 | Outpatient (CLI) | payer OTHER | LOC: M EKG 09:31 | PROVIDERS: ATTEND Physician Assistant | DX: I48.0 Paroxysmal atrial fibrillation (principal) ==

== ENCOUNTER → 2023-12-17 | Outpatient (REF) | payer OTHER ==
[2023-12-17 13:29] LABS: ALBUMIN 3.6 G/DL (3.2-5.2); ALKALINE PHOSPHATASE 97 U/L (46-116); ALT/SGPT 34 U/L (7.0-40); AST/SGOT 17 U/L (<34); BILIRUBIN,TOTAL 0.6 MG/DL (0.3-1.2); BLOOD UREA NITROGEN 17 MG/DL (9-23); CALCIUM LEVEL 9.1 MG/DL (8.5-10.1); CARBON DIOXIDE LEVEL 32 MMOL/L (20-31); CHLORIDE LEVEL 105 MMOL/L (98-107); CREATININE FOR GFR 0.83 MG/DL (0.55-1.30); GLOMERULAR FILTRATION RATE > 60.0 (>51); GLUCOSE, FASTING 104 MG/DL (60-100); POTASSIUM SERUM 5.1 MMOL/L (3.5-5.1); SODIUM LEVEL 140 MMOL/L (136-145); TOTAL PROTEIN 6.5 G/DL (5.7-8.2)
[2023-12-19 15:37] LABS: QuantiFERON-TB Gold Plus NEGATIVE (NEGATIVE)
== END ==
LOC: M SFHCDERM 12:04
PROVIDERS: ATTEND Physician Assistant
DX: Z79.899 Other long term (current) drug therapy (principal)

== ENCOUNTER 2024-01-15 07:46 | Day surgery (SDC) | payer OTHER ==
[~2024-01-15] VITALS: Ht 172.7 cm; Wt 116.7 kg
[2024-01-15] MEDS: NS 1,000 ML IV ONE (08:00)
[2024-01-15] MEDS ORDERED: LIDOCAINE 2% 100MG/5ML SDV (FOR ANES.) As Ordered ONE (08:56)
[2024-01-15] MEDS ORDERED: propofoL 200 MG/20 ML VIAL As Ordered ONE (09:43)
[2024-01-15 09:49] VITALS: TEMP 97
[2024-01-15 10:20] VITALS: BP 139/74; O2SAT 99
== END 2024-01-15 10:34 | disposition home or self-care (01) ==
LOC: M OPP 07:46
PROVIDERS: ATTEND Internal Medicine Gastroenterology
DX: Z12.11 Encounter for screening for malignant neoplasm of colon (principal); Z80.0 Family history of malignant neoplasm of digestive organs; D12.4 Benign neoplasm of descending colon; K64.8 Other hemorrhoids; K57.30 Diverticulosis of large intestine without perforation or abscess without bleeding; Z79.01 Long term (current) use of anticoagulants; Z79.02 Long term (current) use of antithrombotics/antiplatelets; Z79.620 Long term (current) use of immunosuppressive biologic; Z79.85 Long-term (current) use of injectable non-insulin antidiabetic drugs; Z79.899 Other long term (current) drug therapy; Z88.0 Allergy status to penicillin; Z88.2 Allergy status to sulfonamides; Z88.5 Allergy status to narcotic agent; I48.91 Unspecified atrial fibrillation; Z86.74 Personal history of sudden cardiac arrest

== ENCOUNTER → 2024-01-22 | Outpatient (CLI) | payer OTHER | LOC: M RAD 10:39 | PROVIDERS: ATTEND Physician Assistant | DX: E04.1 Nontoxic single thyroid nodule (principal); N93.9 Abnormal uterine and vaginal bleeding, unspecified; R10.2 Pelvic and perineal pain ==

== ENCOUNTER → 2024-05-17 | Outpatient (CLI) | payer OTHER ==
[~2024-05-17] MED LIST changes: +LEVA15HF2 INH; -LEVAINH INH
[2024-05-17 17:23] LABS: HEMATOCRIT 41.2 % (36.0-47.0); HEMOGLOBIN 13.3 g/dl (12.0-15.5); MEAN CORPUSCULAR HEMOGLOBIN 27.9 pg (27.0-33.0); MEAN CORPUSCULAR HGB CONC 32.3 g/dl (32.0-36.5); MEAN CORPUSCULAR VOLUME 86.4 fl (80.0-96.0); PLATELET COUNT, AUTOMATED 226 10^3/uL (150-450); RED BLOOD COUNT 4.77 10^6/uL (4.00-5.40); WHITE BLOOD COUNT 6.1 10^3/uL (4.0-10.0)
[2024-05-17 17:45] LABS: BLOOD UREA NITROGEN 16 MG/DL (9-23); CALCIUM LEVEL 9.4 MG/DL (8.5-10.1); CARBON DIOXIDE LEVEL 29 MMOL/L (20-31); CHLORIDE LEVEL 107 MMOL/L (98-107); CREATININE FOR GFR 0.71 MG/DL (0.55-1.30); GLOMERULAR FILTRATION RATE > 60.0 (>51); GLUCOSE, FASTING 93 MG/DL (60-100); MAGNESIUM LEVEL 2.1 MG/DL (1.8-2.4); POTASSIUM SERUM 4.5 MMOL/L (3.5-5.1); SODIUM LEVEL 143 MMOL/L (136-145)
[2024-05-17 17:48] LABS: THYROID STIMULATING HORMONE 2.048 uIU/ML (0.55-4.78)
== END ==
LOC: M WUC 13:56
PROVIDERS: ATTEND Physician Assistant
DX: I48.0 Paroxysmal atrial fibrillation (principal); R60.0 Localized edema

== ENCOUNTER → 2024-05-18 | Outpatient (CLI) | payer OTHER | LOC: M EKG 15:47 | PROVIDERS: ATTEND Physician Assistant | DX: I48.0 Paroxysmal atrial fibrillation (principal) ==

== ENCOUNTER → 2024-06-28 | Outpatient (CLI) | payer OTHER | LOC: M WHC 15:00 | PROVIDERS: ATTEND Physician Assistant | DX: Z12.31 Encounter for screening mammogram for malignant neoplasm of breast (principal) ==

== ENCOUNTER → 2024-07-02 | Outpatient (REF) | payer OTHER ==
[2024-07-02 14:48] LABS: BASO % 0.6 % (0.0-1.0); EOS # 0.1 10^3/uL (0.0-0.5); EOS % 1.4 % (0.0-3.0); HEMATOCRIT 45.4 % (36.0-47.0); HEMOGLOBIN 14.4 g/dl (12.0-15.5); LYMPH # 2.7 10^3/uL (1.5-5.0); LYMPH % 39.2 % (24.0-44.0); MEAN CORPUSCULAR HEMOGLOBIN 27.6 pg (27.0-33.0); MEAN CORPUSCULAR HGB CONC 31.7 g/dl (32.0-36.5); MEAN CORPUSCULAR VOLUME 87.1 fl (80.0-96.0); MONO # 0.6 10^3/uL (0.0-0.8); MONO % 8.6 % (2.0-8.0); NEUTROPHILS # 3.5 10^3/uL (1.5-8.5); NEUTROPHILS % 49.9 % (36.0-66.0); PLATELET COUNT, AUTOMATED 267 10^3/uL (150-450); RED BLOOD COUNT 5.21 10^6/uL (4.00-5.40)
[2024-07-02 14:56] LABS: FREE T4 1.06 NG/DL (0.89-1.76)
[2024-07-02 14:58] LABS: ALBUMIN 3.7 G/DL (3.2-5.2); ALKALINE PHOSPHATASE 97 U/L (35-104); ALT/SGPT 40 U/L (7.0-40); AST/SGOT 18 U/L (<34); BILIRUBIN,TOTAL 0.6 MG/DL (0.3-1.2); BLOOD UREA NITROGEN 16 MG/DL (9-23); CALCIUM LEVEL 9.9 MG/DL (8.5-10.1); CARBON DIOXIDE LEVEL 31 MMOL/L (20-31); CHLORIDE LEVEL 109 MMOL/L (98-107); CHOLESTEROL LEVEL 172 MG/DL (<200); CREATININE FOR GFR 0.82 MG/DL (0.55-1.30); GLOMERULAR FILTRATION RATE > 60.0 (>51); GLUCOSE, FASTING 105 MG/DL (60-100); HDL CHOLESTEROL 57.2 MG/DL (>40); LDL CHOLESTEROL 95.4 MG/DL (<100); NON-HDL-C 114.8 MG/DL; POTASSIUM SERUM 5.1 MMOL/L (3.5-5.1); SODIUM LEVEL 145 MMOL/L (136-145); THYROID STIMULATING HORMONE 1.257 uIU/ML (0.55-4.78); TOTAL PROTEIN 7.2 G/DL (5.7-8.2); TRIGLYCERIDES LEVEL 97 MG/DL (<150)
[2024-07-02 15:17] LABS: HEMOGLOBIN A1c 5.7 % (4.0-6.0)
== END ==
LOC: M SFHCADAM 09:14
PROVIDERS: ATTEND Physician Assistant
DX: N93.9 Abnormal uterine and vaginal bleeding, unspecified (principal); E04.1 Nontoxic single thyroid nodule; R73.03 Prediabetes; R10.2 Pelvic and perineal pain; R91.8 Other nonspecific abnormal finding of lung field; I48.91 Unspecified atrial fibrillation

== ENCOUNTER → 2024-07-12 | Outpatient (REF) | payer OTHER | LOC: M SFHCADAM 12:28 | PROVIDERS: ATTEND Physician Assistant | DX: J02.9 Acute pharyngitis, unspecified (principal) ==

== ENCOUNTER → 2024-07-14 | Outpatient (CLI) | payer OTHER | LOC: M CARPUL 11:14 | PROVIDERS: ATTEND Physician Assistant | DX: I48.0 Paroxysmal atrial fibrillation (principal); I36.1 Nonrheumatic tricuspid (valve) insufficiency; I37.1 Nonrheumatic pulmonary valve insufficiency ==

== ENCOUNTER → 2024-07-14 | Outpatient (REF) | payer OTHER | LOC: M LAB REF 16:46 | PROVIDERS: ATTEND Physician Assistant Medical | DX: J06.9 Acute upper respiratory infection, unspecified (principal) ==

== ENCOUNTER → 2024-08-19 | Outpatient (CLI) | payer OTHER | LOC: M RAD 11:23 | PROVIDERS: ATTEND Otolaryngology | DX: E04.1 Nontoxic single thyroid nodule (principal) ==

== ENCOUNTER 2024-09-06 14:43 | Emergency (ER) | payer OTHER ==
[~2024-09-06] VITALS: Ht 172.7 cm; Wt 117.6 kg
[2024-09-06 16:02] LABS: BASO % 0.5 % (0.0-1.0); EOS # 0.1 10^3/uL (0.0-0.5); HEMATOCRIT 44.5 % (36.0-47.0); HEMOGLOBIN 14.5 g/dl (12.0-15.5); LYMPH # 2.7 10^3/uL (1.5-5.0); LYMPH % 34.5 % (24.0-44.0); MEAN CORPUSCULAR HGB CONC 32.6 g/dl (32.0-36.5); MEAN CORPUSCULAR VOLUME 86.1 fl (80.0-96.0); MONO # 0.8 10^3/uL (0.0-0.8); MONO % 10.2 % (2.0-8.0); NEUTROPHILS # 4.2 10^3/uL (1.5-8.5); NEUTROPHILS % 53.5 % (36.0-66.0); PLATELET COUNT, AUTOMATED 275 10^3/uL (150-450); RED BLOOD COUNT 5.17 10^6/uL (4.00-5.40); WHITE BLOOD COUNT 7.8 10^3/uL (4.0-10.0)
[2024-09-06 16:23] LABS: CK-MB VALUE MASS < 1.0 NG/ML (<3.6)
[2024-09-06 16:25] LABS: INR 0.99; PARTIAL THROMBOPLASTIN TIME 31.4 SECONDS (24.8-34.2); PROTHROMBIN TIME 13.4 SECONDS (12.5-14.5)
[2024-09-06 16:26] LABS: ALBUMIN 3.6 G/DL (3.2-5.2); ALKALINE PHOSPHATASE 98 U/L (35-104); ALT/SGPT 35 U/L (7.0-40); AST/SGOT 20 U/L (<34); BILIRUBIN,DIRECT 0.1 MG/DL (<0.4); BILIRUBIN,TOTAL 0.5 MG/DL (0.3-1.2); BLOOD UREA NITROGEN 12 MG/DL (9-23); CALCIUM LEVEL 9.5 MG/DL (8.5-10.1); CARBON DIOXIDE LEVEL 30 MMOL/L (20-31); CHLORIDE LEVEL 106 MMOL/L (98-107); CREATININE FOR GFR 0.74 MG/DL (0.55-1.30); GLOMERULAR FILTRATION RATE > 90.0 (>51); GLUCOSE, FASTING 80 MG/DL (60-100); MAGNESIUM LEVEL 2.1 MG/DL (1.8-2.4); PHOSPHORUS LEVEL 3.7 MG/DL (2.5-4.9); POTASSIUM SERUM 4.6 MMOL/L (3.5-5.1); SODIUM LEVEL 144 MMOL/L (136-145); TOTAL PROTEIN 7.1 G/DL (5.7-8.2)
[2024-09-06 16:27] LABS: THYROID STIMULATING HORMONE 1.141 uIU/ML (0.55-4.78)
[2024-09-06 16:28] LABS: FREE T4 1.01 NG/DL (0.89-1.76)
[2024-09-06 16:32] LABS: CPK CREATINE PHOSPHOKINASE 90 U/L (34-145); MB/CK RELATIVE INDEX 1.11 (< OR =4)
[2024-09-06 17:51] VITALS: BP 144/78; TEMP 98.6; O2SAT 97
== END 2024-09-06 17:54 | disposition home or self-care (01) ==
LOC: M ED 14:43
DX: F41.9 Anxiety disorder, unspecified (principal); F43.0 Acute stress reaction; G47.00 Insomnia, unspecified; I48.91 Unspecified atrial fibrillation; I25.2 Old myocardial infarction; E11.9 Type 2 diabetes mellitus without complications; I10 Essential (primary) hypertension; Z79.01 Long term (current) use of anticoagulants; Z79.4 Long term (current) use of insulin; Z79.899 Other long term (current) drug therapy; Z88.0 Allergy status to penicillin; Z88.2 Allergy status to sulfonamides; Z88.5 Allergy status to narcotic agent

== ENCOUNTER → 2024-09-09 | Outpatient (REF) | payer OTHER | LOC: M SFHCADAM 09:51 | PROVIDERS: ATTEND Physician Assistant | DX: F41.9 Anxiety disorder, unspecified (principal); H53.9 Unspecified visual disturbance ==

== ENCOUNTER → 2024-09-23 | Outpatient (CLI) | payer OTHER | LOC: M CARPUL 16:04 | PROVIDERS: ATTEND Physician Assistant | DX: R07.2 Precordial pain (principal); R42 Dizziness and giddiness ==

== ENCOUNTER → 2024-10-05 | Outpatient (CLI) | payer OTHER ==
[~2024-10-05] MED LIST changes: +LIDOCAINE 1% MDV 20ML VIAL SC SCH
[2024-10-05 14:05] VITALS: BP 136/78; TEMP 97.4; O2SAT 95
== END ==
LOC: M IRPRO 13:56
PROVIDERS: ATTEND Otolaryngology
DX: E04.1 Nontoxic single thyroid nodule (principal)

== ENCOUNTER → 2024-12-29 | Outpatient (REF) | payer OTHER ==
[~2024-12-29] MED LIST changes: +AMIT10TA11 PO; -AMIT10TA7 PO; +HYDR12.510 PO; -HYDR12CA PO; -LIDOCAINE 1% MDV 20ML VIAL SC SCH
[2024-12-31 15:17] LABS: HPV APTIMA Not Detected (Not Detected)
== END ==
LOC: M SFHCWAGY 12:57
PROVIDERS: ATTEND Obstetrics & Gynecology
DX: Z12.72 Encounter for screening for malignant neoplasm of vagina (principal)
CPT/HCPCS: 87624; G0123

== ENCOUNTER 2025-02-20 13:36 | Emergency (ER) | payer OTHER ==
[~2025-02-20] VITALS: Ht 172.7 cm; Wt 113.4 kg
[2025-02-20] MEDS ORDERED: AMLO1TAB24 (13:51)
[2025-02-20] MEDS ORDERED: GUSE100A (13:51)
[2025-02-20 15:45] VITALS: TEMP 97.4
[2025-02-20] MEDS: KETOROLAC 30 MG/ML 1 ML VIAL IM ONE (17:09)
[2025-02-20] MEDS: ACETAMINOPHEN 500 MG TAB PO ONE (17:11)
[2025-02-20] MEDS ORDERED: CYCL-707 PO (19:52)
[2025-02-20 20:05] VITALS: BP 149/75; O2SAT 98
== END 2025-02-20 20:25 | disposition home or self-care (01) ==
LOC: M ED 13:36
DX: S73.102A Unspecified sprain of left hip, initial encounter (principal); S76.012A Strain of muscle, fascia and tendon of left hip, initial encounter; W18.30XA Fall on same level, unspecified, initial encounter; Y92.009 Unspecified place in unspecified non-institutional (private) residence as the place of occurrence of the external cause; Y93.9 Activity, unspecified; Y99.9 Unspecified external cause status; E11.9 Type 2 diabetes mellitus without complications; I10 Essential (primary) hypertension; Z79.01 Long term (current) use of anticoagulants; Z79.899 Other long term (current) drug therapy; Z88.0 Allergy status to penicillin; Z88.2 Allergy status to sulfonamides; Z88.5 Allergy status to narcotic agent
CPT/HCPCS: 73502; 96372; 99284; J1885

== ENCOUNTER → 2025-03-03 | Outpatient (CLI) | payer OTHER ==
[~2025-03-03] MED LIST changes: +AMLO1TAB24; +CYCL-707 PO; +GUSE100A
== END ==
LOC: M SOG 14:17
PROVIDERS: ATTEND Orthopaedic Surgery
DX: M25.562 Pain in left knee (principal)

== ENCOUNTER 2025-04-20 06:52 | Emergency (ER) | payer OTHER ==
[2025-04-20 07:26] LABS: BASO # 0.0 10^3/uL (0.0-0.2); BASO % 0.4 % (0.0-1.0); EOS # 0.1 10^3/uL (0.0-0.5); EOS % 1.4 % (0.0-3.0); LYMPH # 2.8 10^3/uL (1.5-5.0); LYMPH % 39.9 % (24.0-44.0); MONO # 0.6 10^3/uL (0.0-0.8); MONO % 9.1 % (2.0-8.0); NEUTROPHILS # 3.4 10^3/uL (1.5-8.5); NEUTROPHILS % 48.9 % (36.0-66.0); PLATELET COUNT, AUTOMATED 257 10^3/uL (150-450)
[2025-04-20 07:51] LABS: CALCIUM LEVEL 8.8 MG/DL (8.5-10.1); CARBON DIOXIDE LEVEL 29 MMOL/L (20-31); CHLORIDE LEVEL 105 MMOL/L (98-107); CK-MB VALUE MASS < 1.0 NG/ML (<3.6); CREATININE FOR GFR 0.71 MG/DL (0.55-1.30); GLOMERULAR FILTRATION RATE > 90.0 (>51); POTASSIUM SERUM 4.5 MMOL/L (3.5-5.1); SODIUM LEVEL 143 MMOL/L (136-145)
[2025-04-20] MEDS: ASPIRIN 81 MG CHEWABLE TABLET PO ONE (07:52)
[2025-04-20 07:53] VITALS: BP 123/68
[2025-04-20] MEDS: NITROGLYCERIN 0.4 MG SUBL TABLET SL STA (07:53)
[2025-04-20 07:54] LABS: CPK CREATINE PHOSPHOKINASE 61 U/L (34-145)
[2025-04-20] MEDS: ONDANSETRON 4MG/2ML VIAL IV ONE (08:50)
[2025-04-20] MEDS: NS (Normal Saline) 0.9% 1,000 ML IV ONE (08:50)
[2025-04-20] MEDS: MORPHINE 2 MG/ML 1 ML VIAL IV ONE (08:53)
[2025-04-20 09:05] LABS: MAGNESIUM LEVEL 1.8 MG/DL (1.8-2.4)
[2025-04-20 09:09] LABS: FREE T4 0.98 NG/DL (0.89-1.76)
[2025-04-20 09:13] LABS: CK-MB VALUE MASS < 1.0 NG/ML (<3.6); CPK CREATINE PHOSPHOKINASE 69 U/L (34-145)
[2025-04-20 09:33] LABS: INR 1.16
[2025-04-20 11:09] LABS: CK-MB VALUE MASS < 1.0 NG/ML (<3.6); CPK CREATINE PHOSPHOKINASE 73 U/L (34-145)
[2025-04-20] MEDS ORDERED: ISOVUE-370 76% 100 ML VIAL As Ordered ONE (11:17)
[2025-04-20 15:06] VITALS: BP 106/55; TEMP 97.1; O2SAT 99
== END 2025-04-20 15:17 | disposition home or self-care (01) ==
LOC: M ED 06:52
DX: R07.89 Other chest pain (principal); I10 Essential (primary) hypertension; E78.5 Hyperlipidemia, unspecified; K76.0 Fatty (change of) liver, not elsewhere classified; Z79.01 Long term (current) use of anticoagulants; Z79.85 Long-term (current) use of injectable non-insulin antidiabetic drugs; Z88.0 Allergy status to penicillin; Z88.2 Allergy status to sulfonamides; Z88.5 Allergy status to narcotic agent
CPT/HCPCS: 71045; 71275; 80048; 82550; 82553; 83735; 84439; 84443; 84484; 85025; 85610; 85730; 93005; 93041; 96361; 96374; 96375; 99285; J2405; Q9967

== ENCOUNTER 2025-05-16 11:00 | Emergency (ER) | payer OTHER ==
[~2025-05-16] VITALS: Ht 172.7 cm; Wt 114.6 kg
[2025-05-16] MEDS ORDERED: CLEO300C2 PO (14:02)
[2025-05-16 14:07] VITALS: BP 133/73; TEMP 97.7; O2SAT 98
== END 2025-05-16 14:10 | disposition home or self-care (01) ==
LOC: M ED 11:00
DX: J02.9 Acute pharyngitis, unspecified (principal); Z79.01 Long term (current) use of anticoagulants; Z79.899 Other long term (current) drug therapy; Z88.0 Allergy status to penicillin; Z88.2 Allergy status to sulfonamides; Z88.5 Allergy status to narcotic agent